=== PATIENT | female | born 1950 | race Caucasian/White ===

== ENCOUNTER → 2017-01-26 | Outpatient (CLI) | payer MEDICARE ==
--- NOTE | 2017-01-26 09:41 | MR ---
EXAMINATION TYPE: MR shoulder RT wo con DATE OF EXAM: 01/26/2017 COMPARISON: NONE HISTORY: Rt Shoulder pain TECHNIQUE: Multiplanar, multisequence imaging of the shoulder is performed without contrast. FINDINGS: There is elevation of the humerus relative to the glenoid with cystic changes involving the glenoid a nd narrowing of the joint space with evidence of chondromalacia. Findings compatible with arthritic c hange. There is diffuse abnormal intrinsic signal involving the distal margins of the infraspinatus and supr aspinatus tendons compatible with partial tears with no evidence of significant retraction. Partial t hrough thickness tear is seen involving the anterior fibers of the supraspinatus tendon at the level of the insertion. There is a fluid-filled signal along the inner margin of the deltoid which may represent a small gang lion cyst measuring approximately 2.2 cm. Abnormal signal is seen within the anterior superior labrum compatible with labral tear. Biceps tendon is well situated the bicipital groove. Increased signal within the intracapsular portio n of the tendon suggestive of tendinosis. Suprascapular Notch has a normal appearance. Hypertrophic change of the AC joint results in impingement of the supraspinatus tendon and muscle. There is mild atrophic change of the supraspinatus and infraspinatus muscles. Subscapularis appears intact there is intermediate signal at its insertion compatible with tendinosis .. IMPRESSION: 1. There is diffuse abnormal signal throughout the distal margins of the supraspinatus and infraspina tus tendons extending a length of 2.2 cm compatible with partial tears. Partial through thickness tea r involving the anterior fibers of the supraspinatus at the insertion without evidence of significant retraction. Mild atrophic changes of the supraspinatus and infraspinatus muscles. 2. Arthritic changes with anterior superior labral tear. 3. Fluid-filled structure along the anterior margin of the deltoid may represent continuation or extr avasation of joint fluid. Ganglion cyst in the differential. 4. Impingement secondary to hypertrophic change of the AC joint. 5. Increased signal along the intracapsular portion of the biceps tendon compatible with tendinosis. No retraction or tear.
== END | disposition home or self-care (01) ==
LOC: RADMRIMAIN 06:36
PROVIDERS: ATTEND Orthopaedic Surgery
DX: M75.111 Incomplete rotator cuff tear or rupture of right shoulder, not specified as traumatic (principal); S43.491A Other sprain of right shoulder joint, initial encounter; M25.811 Other specified joint disorders, right shoulder; R93.7 Abnormal findings on diagnostic imaging of other parts of musculoskeletal system

== ENCOUNTER 2017-03-17 06:45 | Day surgery (SDC) | payer MEDICARE ==
[2017-03-15 10:57] VITALS: BMI 31.3
[~2017-03-17 06:45] MED LIST: LACTATED RINGERS 1,000 ML IV SCH
[2017-03-17] MEDS ORDERED: LACTATED RINGERS 1,000 ML IV ONE (07:03)
[2017-03-17 07:15] VITALS: TEMP 97
[2017-03-17 07:17] LABS: Glucose,Whole Blood 116 mg/dL (75-99)
[2017-03-17] MEDS ORDERED: PROPOFOL 10 MG/ML 20 ML VIAL IV ONE (07:45)
[2017-03-17] MEDS ORDERED: LIDOCAINE 1% INJ 10MG/ML (20 ML MDV) ONE (07:45)
--- NOTE | 2017-03-17 07:56 | P.GSHP ---
History of Present Illness H&P Date: 03/17/17 Chief Complaint: Diarrhea, screening colonoscopy This is a 66-year-old female referred from Dr. Sophy Simmons. Patient had complaints of diarrhea for last 2 months. She is a history of diverticulosis. She does today for screening colonoscopy. Past Medical History Past Medical History: COPD, Diabetes Mellitus, Fibromyalgia, Hyperlipidemia, Hypertension, Osteoarthritis (OA), Thyroid Disorder Additional Past Medical History / Comment(s): MIGRAINE HEADACHES, RAPID HEARTBEAT, hiatal hernia, diarrhea for past 1 1/2 months History of Any Multi-Drug Resistant Organisms: MRSA Date of last positivie culture/infection: 2005 MDRO Source:: RIGHT MIDDLE FINGER Past Surgical History: Appendectomy, Back Surgery, Heart Catheterization, Hernia Repair, Joint Replacement, Orthopedic Surgery Additional Past Surgical History / Comment(s): EXPLORATORY LAPAROTOMY , walker THUMB joint replacement, left knee replacement, rt shoulder rotator cuff, rt hand middle finger surgery Past Anesthesia/Blood Transfusion Reactions: Motion Sickness Smoking Status: Former smoker - Past Family History Brother(s) Family Medical History: Cancer Additional Family Medical History / Comment(s): LEUKEMIA Father Family Medical History: Cancer Additional Family Medical History / Comment(s): SKIN CANCER Medications and Allergies Home Medications Medication Instructions Recorded Confirmed Type Albuterol Sulfate [Proair Hfa] 2 puff INHALATION Q6HR PRN 12/10/14 03/17/17 History Isosorbide Mononitrate ER [Imdur] 30 mg PO DAILY 12/10/14 03/17/17 History Levothyroxine Sodium [Synthroid] 50 mcg PO DAILY 12/10/14 03/17/17 History Montelukast [Singulair] 10 mg PO HS 12/10/14 03/17/17 History Nortriptyline [Pamelor] 50 mg PO HS 12/10/14 03/15/17 History Sertraline [Zoloft] 100 mg PO DAILY 12/10/14 03/17/17 History Fluticasone/Salmeterol [Advair Hfa 1 puff INHALATION BID 05/02/15 03/17/17 History 230-21 Mcg Inhaler] metFORMIN HCL [Glucophage] 500 mg PO BID 05/02/15 03/17/17 History Atorvastatin [Lipitor] 40 mg PO HS 03/15/17 03/17/17 History Lisinopril [Zestril] 5 mg PO DAILY 03/15/17 03/17/17 History Melatonin 10 mg PO HS PRN 03/15/17 03/17/17 History Meloxicam [Mobic] 15 mg PO DAILY 03/15/17 03/17/17 History Verapamil HCl [Verapamil ER] 120 mg PO HS 03/15/17 03/17/17 History Allergies Allergy/AdvReac Type Severity Reaction Status Date / Time adhesive Allergy Rash/Hives Verified 09/16/15 12:20 Sulfa (Sulfonamide Allergy SWELLING Verified 09/16/15 12:20 Antibiotics) OF THROAT,SHORTNESS OF BREATH simvastatin [From Zocor] AdvReac Unknown Verified 09/16/15 12:20 metal Allergy Rash/Hives Uncoded 03/15/17 10:39 Surgical - Exam Vital Signs Temp Pulse Resp BP Pulse Ox 97 F L 96 16 117/74 94 L 03/17/17 07:13 03/17/17 07:13 03/17/17 07:13 03/17/17 07:13 03/17/17 07:13 - General well developed, no distress - Eyes PERRL - ENT normal pinna - Neck no masses - Respiratory normal expansion - Cardiovascular Rhythm: regular - Abdomen Abdomen: soft, non tender Results - Labs Abnormal Lab Results - Last 24 Hours (Table) 03/17/17 Range/Units 07:13 POC Glucose (mg/dL) 116 H (75-99) mg/dL Assessment and Plan Plan: Diarrhea History of diverticulosis We'll perform screening colonoscopy
--- NOTE | 2017-03-17 08:09 | P.OP ---
Date of Procedure: 03/17/17 Preoperative Diagnosis: Screening colonoscopy Diarrhea Postoperative Diagnosis: Severe diverticulosis of sigmoid colon Random rectal biopsy pathology pending Procedure(s) Performed: Colonoscopy Implants: Anesthesia: MAC Surgeon: Tyrone Schneider Pathology: other (Rectum) Condition: stable Disposition: PACU Indications for Procedure: Operative Findings: Description of Procedure: The patient's placed on the endoscopy table in the lateral position. She received IV sedation. Digital rectal exam was performed which revealed no abnormalities. The flexible colonoscope was then placed patient anus passed throughout the entire colon. The ileocecal valve was visualized. The cecum, ascending and transverse colon appeared normal. In the descending and sigmoid colon there was significant diverticular changes. The scope was then brought back into the rectum and this appeared normal. Due to the patient's symptoms of diarrhea a random rectal biopsies performed. There is known to any inflammation the rectum. The scope was withdrawn for patient.
[2017-03-17 08:23] LABS: Glucose,Whole Blood 120 mg/dL (75-99)
[2017-03-17 08:35] VITALS: BP 118/74; PULSE 88; RESP 18
== END 2017-03-17 08:45 | disposition home or self-care (01) ==
LOC: ORWHC2ENDO 06:45
PROVIDERS: ATTEND Surgery
DX: K57.30 Diverticulosis of large intestine without perforation or abscess without bleeding (principal); R19.7 Diarrhea, unspecified; J44.9 Chronic obstructive pulmonary disease, unspecified; E11.9 Type 2 diabetes mellitus without complications; M79.7 Fibromyalgia; E78.5 Hyperlipidemia, unspecified; I10 Essential (primary) hypertension; M19.90 Unspecified osteoarthritis, unspecified site; E07.9 Disorder of thyroid, unspecified; G43.909 Migraine, unspecified, not intractable, without status migrainosus; Z79.51 Long term (current) use of inhaled steroids; Z79.84 Long term (current) use of oral hypoglycemic drugs; Z79.899 Other long term (current) drug therapy; Z88.2 Allergy status to sulfonamides; Z91.048 Other nonmedicinal substance allergy status; Z86.14 Personal history of Methicillin resistant Staphylococcus aureus infection; Z87.891 Personal history of nicotine dependence
CPT/HCPCS: 88305; 45380; J2001; J2704

== ENCOUNTER 2017-03-30 05:51 | Day surgery (SDC) | payer MEDICARE ==
[2017-03-22 11:58] VITALS: BMI 31.3
[~2017-03-30 05:51] MED LIST changes: +DEXAMETHASONE SOD PHOSPHATE 10 MG/ML 1 ML VIAL IV ONE; +HYDROmorphone 1 MG/ML 1 ML SYRINGE IVP PRN; +MIDAZOLAM 2 MG/2 ML VIAL IV PRN; +ceFAZolin 2 GM in SODIUM CHLORIDE 0.9% 100 ML IVPB ONE
[2017-03-30] MEDS ORDERED: LIDOCAINE 1% 20 ML VIAL (10MG/ML) FOR IV START INTRADERMA ONE (06:36)
[2017-03-30] MEDS: ONDANSETRON 4 MG/2 ML VIAL IVP ONE ×2 (06:37→09:22)
[2017-03-30 06:46] LABS: Glucose,Whole Blood 135 mg/dL (75-99)
--- NOTE | 2017-03-30 07:18 | P.HPOR ---
History of Present Illness H&P Date: 03/30/17 Chief Complaint: Right shoulder pain 66-year-old patient seen with progressive right shoulder pain. After having treatment options discussed, she elected to proceed with right shoulder arthroscopy. Past Medical History Past Medical History: COPD, Diabetes Mellitus, Fibromyalgia, Hyperlipidemia, Hypertension, Osteoarthritis (OA), Thyroid Disorder Additional Past Medical History / Comment(s): MIGRAINE HEADACHES, RAPID HEARTBEAT, HIATAL HERNIA, DIARRHEA., TORN TIGHT ROTATOR CUFF. History of Any Multi-Drug Resistant Organisms: MRSA Date of last positivie culture/infection: 2005 MDRO Source:: RIGHT MIDDLE FINGER Past Surgical History: Appendectomy, Back Surgery, Heart Catheterization, Hernia Repair, Joint Replacement, Orthopedic Surgery Additional Past Surgical History / Comment(s): EXPLORATORY LAPAROTOMY, TC THUMB JOINT REPLACEMENT, LEFT KNEE REPLACEMENT, RIGHT SHOULDER ROTATOR CUFF, RIGHT HAND MIDDLE FINGER SURGERY. Past Anesthesia/Blood Transfusion Reactions: No Reported Reaction, Motion Sickness Past Psychological History: Anxiety Smoking Status: Former smoker Past Alcohol Use History: None Reported Additional Past Alcohol Use History / Comment(s): STARTED SMOKING AGE 15 ,QUIT IN 2008 Past Drug Use History: None Reported - Past Family History Brother(s) Family Medical History: Cancer Additional Family Medical History / Comment(s): LEUKEMIA Father Family Medical History: Cancer Additional Family Medical History / Comment(s): SKIN CANCER Medications and Allergies Home Medications Medication Instructions Recorded Confirmed Type Albuterol Sulfate [Proair Hfa] 2 puff INHALATION Q6HR PRN 12/10/14 03/22/17 History Isosorbide Mononitrate ER [Imdur] 30 mg PO DAILY 12/10/14 03/22/17 History Levothyroxine Sodium [Synthroid] 50 mcg PO DAILY 12/10/14 03/22/17 History Montelukast [Singulair] 10 mg PO HS 12/10/14 03/22/17 History Nortriptyline [Pamelor] 50 mg PO HS 12/10/14 03/22/17 History Sertraline [Zoloft] 100 mg PO DAILY 12/10/14 03/22/17 History Fluticasone/Salmeterol [Advair Hfa 1 puff INHALATION BID 05/02/15 03/22/17 History 230-21 Mcg Inhaler] metFORMIN HCL [Glucophage] 500 mg PO BID 05/02/15 03/22/17 History Atorvastatin [Lipitor] 40 mg PO HS 03/15/17 03/22/17 History Lisinopril [Zestril] 5 mg PO DAILY 03/15/17 03/22/17 History Melatonin 10 mg PO HS PRN 03/15/17 03/22/17 History Meloxicam [Mobic] 15 mg PO DAILY 03/15/17 03/22/17 History Verapamil HCl [Verapamil ER] 120 mg PO HS 03/15/17 03/22/17 History L.acidoph,Paracasei, B.lactis 1 each PO DAILY 03/22/17 03/22/17 History [Probiotic] Loperamide HCl [Imodium A-D] 2 mg PO DAILY PRN 03/22/17 03/22/17 History Allergies Allergy/AdvReac Type Severity Reaction Status Date / Time adhesive Allergy Rash/Hives Verified 03/22/17 11:45 Sulfa (Sulfonamide Allergy SWELLING Verified 03/22/17 11:45 Antibiotics) OF THROAT,SHORTNESS OF BREATH simvastatin [From Zocor] AdvReac Unknown Verified 03/22/17 11:45 metal Allergy Rash/Hives Uncoded 03/22/17 11:45 Physical Examination Osteopathic Statement: *. No significant issues noted on an osteopathic structural exam other than those noted in the History and Physical/Consult. Right shoulder: Flexion 150, abduction 30, external rotation is 50 with pain and weakness, tenderness along the anterior lateral acromion and rotator cuff insertion site, impingement sign positive at 70, distal neurovascular exam intact Results X-ray right shoulder: Type II anterior acromion, acromioclavicular joint osteoarthritis, cystic changes of the greater tuberosity MRI right shoulder: Rotator cuff tear, impingement - Labs Labs: Abnormal Lab Results - Last 24 Hours (Table) 03/30/17 Range/Units 06:30 POC Glucose (mg/dL) 135 H (75-99) mg/dL Assessment and Plan Plan: Assessment: Right shoulder impingement with rotator cuff tear and acromioclavicular joint osteoarthritis Plan: Arthroscopy right shoulder with subacromial decompression and probable arthroscopic rotator cuff repair possible Rogers procedure and debridement Time with Patient: Less than 30
[2017-03-30] MEDS ORDERED: SUCCINYLCHOLINE CHLORIDE 100 MG/5 ML SYR IV ONE (07:30)
[2017-03-30] MEDS ORDERED: LIDOCAINE 1% INJ 10MG/ML (20 ML MDV) ONE (07:30)
[2017-03-30] MEDS ORDERED: MIDAZOLAM 2 MG/2 ML VIAL ONE (07:30)
[2017-03-30] MEDS ORDERED: PROPOFOL 10 MG/ML 20 ML VIAL IV ONE (07:30)
[2017-03-30] MEDS ORDERED: LIDOCAINE 2%-EPI 1:100,000 20 ML VIAL ONE (07:30)
[2017-03-30] MEDS ORDERED: fentaNYL (PF) 50 MCG/ML 2 ML AMP ONE (07:30)
[2017-03-30] MEDS ORDERED: ROPIVACAINE 5 MG/ML 30 ML VIAL ONE (07:30)
[2017-03-30] MEDS ORDERED: LACTATED RINGERS 1,000 ML IV ONE (08:41)
[2017-03-30 09:14] VITALS: TEMP 97.6
[2017-03-30 09:18] LABS: Glucose,Whole Blood 174 mg/dL (75-99)
--- NOTE | 2017-03-30 09:19 | P.OP ---
Date of Procedure: 03/30/17 Preoperative Diagnosis: Right shoulder impingement with rotator cuff tear Postoperative Diagnosis: 1. Right shoulder rotator cuff tear 2. Right shoulder impingement 3. Right shoulder glenohumeral joint osteoarthritis with osteochondral tear glenoid fossa 4. Right shoulder acromioclavicular joint osteoarthritis 5. Right shoulder partial biceps tendon tear 6. Right shoulder superficial labral tear Procedure(s) Performed: 1. Right shoulder arthroscopic rotator cuff repair 2. Right shoulder arthroscopic subacromial decompression 3. Right shoulder arthroscopic chondroplasty glenoid 4. Right shoulder arthroscopic Elio procedure 5. Right shoulder arthroscopic biceps tenotomy 6. Right shoulder arthroscopic debridement labral tear Implants: 4-valeris peek anchors Anesthesia: GETA, regional (Shoulder block) Surgeon: Matthew Garcia Swager Operator #1: Chuy Khan Estimated Blood Loss (ml): 10 Pathology: none sent Condition: stable Disposition: PACU Indications for Procedure: 66-year-old patient seen with progressive right shoulder pain. After treatment options were discussed, she elected to proceed with arthroscopy. Operative Findings: see description of procedure Description of Procedure: Patient underwent a shoulder block by department of anesthesia. The patient was then taken to the operative suite. The patient underwent a general anesthetic by the department of anesthesia. The patient was placed into a lateral position and secured. There was appropriate padding of the bony prominence. Right shoulder was then prepped and draped in normal sterile orthopedic fashion. We placed the extremity in 10 pounds of longitudinal traction. A posterior incision was now made for a posterior working portal site. The trocar and cannula were inserted into the glenohumeral joint. Arthroscopy was initiated. Spinal needle was now inserted anteriorly, to ascertain the anterior working portal site. An incision was now made in that area, a trocar was inserted followed by a probe. There was obvious glenohumeral joint osteoarthritis. Grade 3 chondromalacia changes of the humeral head. Grade 3/4 chondromalacia changes of the glenoid. There was one area of exposed bone some osteochondral tears present on the glenoid side. There was some superficial tearing of the anterior superior labrum present. There was partial tearing long head biceps tendon. There was no obvious rotator cuff tear present. No loose bodies were identified. I performed an arthroscopic biceps tenotomy. I debrided the labral tears down to stable tissue. I performed a chondroplasty of the glenoid getting down to stable osteochondral tissue. The residual labrum was probed and found to be stable. The residual osteochondral surfaces were stable but again we noticed significant chondromalacia. At this point instruments were removed from glenohumeral joint. Utilizing the posterior working portal site, the trocar and cannula were inserted into the subacromial space. Arthroscopy initiated. I made an incision 2 fingerbreadths lateral to the acromion. I introduced my trocar followed by my [employer] ablator. I now began ablating thick subacromial bursal tissue, which exposed the undersurface of the anterior acromion. This was diminished subacromial space. There was a very prominent anterior acromion. A motorized bur was introduced and a subacromial decompression was performed. I also excised some osteophytes off the inferior aspect of the distal clavicle. The AC joint was visualized and noted to be fairly arthritic. Our motorized bur was introduced in the anterior portal site and a Elio procedure was performed without difficulty, decompressing the AC joint nicely. I turned my attention to the rotator cuff. There was about a 2.5-3 cm tear distal supraspinatus. I debrided the margins getting down to stable tissue. I abraded the footprint with a motorized bur. I made an research neuropsychologist portal site off the lateral acromion. I introduced 2 medial anchors with 2 sutures each. I now passed all 4 limbs of suture through good bites of rotator cuff tendon. There was a small area posteriorly which I thought needed augmented fixation and I therefore passed one loop suture. I now crisscrossed the sutures in introduced 2 lateral anchors compressing the tendon along the footprint very nicely. All residual suture limbs were clipped. We had good stable repair. I injected 1 mL Allogen intra-articular. Instruments now removed from the portal sites. All portal sites were approximated with nylon suture. Sterile dressings were applied followed by a shoulder immobilizer. Trever ASHER assisted with the procedure. The patient was awakened, transferred to a bed, and taken to recovery in stable condition.
[2017-03-30] MEDS ORDERED: diphenhydrAMINE 50 MG/ML 1 ML VIAL IVP ONE (09:52)
[2017-03-30 10:16] VITALS: RESP 18
[2017-03-30 11:02] VITALS: BP 129/65; PULSE 88
== END 2017-03-30 11:58 | disposition home or self-care (01) ==
LOC: OR 05:51
PROVIDERS: ATTEND Orthopaedic Surgery
DX: M75.101 Unspecified rotator cuff tear or rupture of right shoulder, not specified as traumatic (principal); M75.41 Impingement syndrome of right shoulder; M19.011 Primary osteoarthritis, right shoulder; S43.401A Unspecified sprain of right shoulder joint, initial encounter; S46.111A Strain of muscle, fascia and tendon of long head of biceps, right arm, initial encounter; X58.XXXA Exposure to other specified factors, initial encounter; J44.9 Chronic obstructive pulmonary disease, unspecified; E11.9 Type 2 diabetes mellitus without complications; Z79.84 Long term (current) use of oral hypoglycemic drugs; M79.7 Fibromyalgia; E78.5 Hyperlipidemia, unspecified; E07.9 Disorder of thyroid, unspecified; I10 Essential (primary) hypertension; Z87.891 Personal history of nicotine dependence; Z79.1 Long term (current) use of non-steroidal anti-inflammatories (NSAID); Z79.51 Long term (current) use of inhaled steroids; Z79.899 Other long term (current) drug therapy; Z88.2 Allergy status to sulfonamides; Z88.8 Allergy status to other drugs, medicaments and biological substances; Z91.09 Other allergy status, other than to drugs and biological substances
CPT/HCPCS: 64415; 29826; 29827; 29824; C1713 ×2; C1765; J2250; J1200; J1100; J0690; J2405; J2001; J3010; J2795; J0330; J2704

== ENCOUNTER → 2017-09-09 | Outpatient (CLI) | payer MEDICARE ==
--- NOTE | 2017-09-12 11:21 | MM ---
Reason for exam: screening (asymptomatic). Last mammogram was performed 11 years and 10 months ago. History: Patient is postmenopausal. Family history of breast cancer in aunt. Physical Findings: A clinical breast exam by your physician is recommended on an annual basis and results should be correlated with mammographic findings. MG 3D Screening Mammo W/Cad Bilateral CC and MLO view(s) were taken. Prior study comparison: October 29, 2005, CAD bilateral diagnostic mammogram. May 14, 2004, left breast special view mammogram. The breast tissue is heterogeneously dense. This may lower the sensitivity of mammography. Benign calcifications bilaterally. There is chronic nodularity bilaterally. There is no dominant lesion. No significant changes when compared with prior studies. ASSESSMENT: Benign, BI-RAD 2 RECOMMENDATION: Routine screening mammogram of both breasts in 1 year.
== END | disposition home or self-care (01) ==
LOC: RADMAMWWP 08:12
PROVIDERS: ATTEND Family Medicine
DX: Z12.31 Encounter for screening mammogram for malignant neoplasm of breast (principal)
CPT/HCPCS: 77063; 77067

== ENCOUNTER 2018-12-15 16:07 | Observation (INO) | payer MEDICARE ==
[2018-12-15] MEDS ORDERED: SODIUM CHLORIDE 0.9% 500 ML 500 ML IV ONE (16:35)
[2018-12-15 16:45] LABS: Glucose,Whole Blood 96 mg/dL (75-99)
[2018-12-15 17:03] LABS: Appearance,Urine Clear (Clear); Bilirubin,Urine Negative (Negative); Blood,Urine Negative (Negative); Color,Urine Light Yellow; Glucose,Urine (UA) Negative (Negative); Ketones,Urine Negative (Negative); Leukocyte Esterase,Urine Trace (Negative); Mucus,Urine Rare /hpf; Nitrite,Urine Negative (Negative); Protein,Urine Negative (Negative); RBC,Urine <1 /hpf (0-5); Specific Gravity,Urine 1.009 (1.001-1.035); Urobilinogen,Urine <2.0 mg/dL (<2.0); WBC,Urine 5 /hpf (0-5)
[2018-12-15 17:13] LABS: Basophils # (A) 0.1 k/uL (0-0.2); Basophils % (A) 1 %; Eosinophils # (A) 0.2 k/uL (0-0.7); Eosinophils % (A) 2 %; HCT 37.6 % (34.0-46.0); HGB 12.4 gm/dL (11.4-16.0); Lymphocytes # (A) 1.6 k/uL (1.0-4.8); Lymphocytes % (A) 21 %; MCH 28.5 pg (25.0-35.0); MCV 86.4 fL (80.0-100.0); Mean Platelet Volume 6.2; Monocytes # (A) 0.4 k/uL (0-1.0); Monocytes % (A) 5 %; Neutrophils # (A) 5.4 k/uL (1.3-7.7); Neutrophils % (A) 68 %; Platelet Count 349 k/uL (150-450); RBC 4.35 m/uL (3.80-5.40); RDW 13.6 % (11.5-15.5); WBC 7.9 k/uL (3.8-10.6)
--- NOTE | 2018-12-15 17:18 | ED ---
Altered Mental Status HPI - General Chief Complaint: Altered Mental Status Stated Complaint: altered mental status Time Seen by Provider: 12/15/18 16:35 Source: family, RN notes reviewed, old records reviewed Mode of arrival: wheelchair Limitations: no limitations - History of Present Illness Initial Comments: This is a 68-year-old female the ER for evaluation. Patient presented for evaluation of neurological insult. This patient was last seen normal around 1:00. Around 4:00 and just prior to arrival family noted patient to be searching for things and she was unsure what she was surgeon for it difficulty with recent memory recall was unsure was present when her went with her daughter to doctor's. Patient has no prior history of CVA. Denies any strength or weakness deficits. No headaches. Patient denies any recent medicat ion changes. Patient's memory is improving currently she has no her she is, she still having difficulty remembering what she was looking for in her house. MD Complaint: altered mental status, confusion -: hour(s) Severity: mild Consistency of Symptoms: unknown (Proving) - Related Data Home Medications Medication Instructions Recorded Confirmed Albuterol Sulfate [Proair Hfa] 2 puff INHALATION RT-QID PRN 12/10/14 12/15/18 Levothyroxine Sodium [Synthroid] 50 mcg PO DAILY 12/10/14 12/15/18 Montelukast [Singulair] 10 mg PO HS 12/10/14 12/15/18 Nortriptyline [Pamelor] 50 mg PO HS 12/10/14 12/15/18 Sertraline [Zoloft] 100 mg PO DAILY 12/10/14 12/15/18 metFORMIN HCL [Glucophage] 500 mg PO BID 05/02/15 12/15/18 Atorvastatin [Lipitor] 40 mg PO HS 03/15/17 12/15/18 Lisinopril [Zestril] 10 mg PO DAILY 03/15/17 12/15/18 Melatonin 10 mg PO HS 03/15/17 12/15/18 L.acidoph,Paracasei, B.lactis 1 cap PO DAILY 03/22/17 12/15/18 [Probiotic] Pantoprazole Sodium [Protonix] 40 mg PO DAILY 04/09/18 12/15/18 Albuterol Nebulized [Ventolin 2.5 mg INHALATION RT-QID PRN 12/15/18 12/15/18 Nebulized] Metoprolol Tartrate [Lopressor] 25 mg PO BID 12/15/18 12/15/18 Previous Rx's Medication Instructions Recorded Acetaminophen Tab [Tylenol] 650 mg PO Q4HR PRN tab 04/15/18 Allergies Allergy/AdvReac Type Severity Reaction Status Date / Time adhesive Allergy Rash/Hives Verified 12/15/18 17:53 simvastatin [From Zocor] Allergy Anaphylaxis Verified 12/15/18 17:53 Sulfa (Sulfonamide Allergy SWELLING Verified 12/15/18 17:53 Antibiotics) OF THROAT,SHORTNESS OF BREATH metal Allergy Rash/Hives Uncoded 04/09/18 15:50 Review of Systems ROS Statement: Those systems with pertinent positive or pertinent negative responses have been documented in the HPI. ROS Other: All systems not noted in ROS Statement are negative. Past Medical History Past Medical History: COPD, Diabetes Mellitus, Hypertension, Osteoarthritis (OA), Thyroid Disorder Additional Past Medical History / Comment(s): MIGRAINE HEADACHES, PAST HX RAPID HEARTBEAT, diverticulitis History of Any Multi-Drug Resistant Organisms: MRSA Date of last positivie culture/infection: 08/27/05 MDRO Source:: RIGHT MIDDLE FINGER Past Surgical History: Heart Catheterization, Hernia Repair, Orthopedic Surgery Additional Past Surgical History / Comment(s): UMBILICAL HERNIA ,INGUINAL HERNIA, EXPLORATORY LAPAROTOMY,THUMB SURGERY, 12-16-14 TOTAL LT KNEE ARTHROPLASTY. R Shoulder - rotator cuff. Past Anesthesia/Blood Transfusion Reactions: Previous Problems w/ Anesthesia Additional Past Anesthesia/Blood Transfusion Reaction / Comment(s): anesthetics - generalized weakness and muscle soreness. Past Psychological History: Anxiety Smoking Status: Former smoker Past Alcohol Use History: Rare Past Drug Use History: None Reported - Past Family History Mother Family Medical History: Myocardial Infarction ([place]) Additional Family Medical History / Comment(s): Mother of [place] Brother(s) Family Medical History: Cancer Additional Family Medical History / Comment(s): LEUKEMIA Father Family Medical History: Cancer, Myocardial Infarction ([place]) Additional Family Medical History / Comment(s): SKIN CANCER, father of [place] General Exam - General Exam Comments Initial Comments: NIH of 0 Limitations: no limitations General appearance: alert, in no apparent distress Course Vital Signs 05/10/19 05/10/19 05/10/19 16:19 17:00 17:30 Temperature 97.6 F Pulse Rate 80 84 77 Respiratory 16 16 16 Rate Blood Pressure 128/78 129/79 129/79 O2 Sat by Pulse 96 97 96 Oximetry 12/15/18 18:00 Temperature Pulse Rate 89 Respiratory 18 Rate Blood Pressure 137/72 O2 Sat by Pulse 98 Oximetry - Reevaluation(s) Reevaluation #1: 12/15/18 18:57 Medical record is reviewed Reevaluation #2: 12/15/18 18:57 Patient's symptoms continuing to improve Medical Decision Making - Medical Decision Making 68 female the ER with symptoms of TIA versus CVA, retrograde amnesia, will admit for neurology evaluation and placed on aspirin, continue neurology checks - Lab Data Result diagrams: 12/15/18 17:00 12/15/18 17:00 Lab Results 12/15/18 12/15/18 12/15/18 Range/Units 16:44 16:52 16:52 WBC (3.8-10.6) k/uL RBC (3.80-5.40) m/uL Hgb (11.4-16.0) gm/dL Hct (34.0-46.0) % MCV (80.0-100.0) fL MCH (25.0-35.0) pg MCHC (31.0-37.0) g/dL RDW (11.5-15.5) % Plt Count (150-450) k/uL Neutrophils % % Lymphocytes % % Monocytes % % Eosinophils % % Basophils % % Neutrophils # (1.3-7.7) k/uL Lymphocytes # (1.0-4.8) k/uL Monocytes # (0-1.0) k/uL Eosinophils # (0-0.7) k/uL Basophils # (0-0.2) k/uL PT (9.0-12.0) sec INR (<1.2) APTT (22.0-30.0) sec Sodium (137-145) mmol/L Potassium (3.5-5.1) mmol/L Chloride (98-107) mmol/L Carbon Dioxide (22-30) mmol/L Anion Gap mmol/L BUN (7-17) mg/dL Creatinine (0.52-1.04) mg/dL Est GFR (CKD-EPI)AfAm (>60 ml/min/1.73 sqM) Est GFR (CKD-EPI)NonAf (>60 ml/min/1.73 sqM) Glucose (74-99) mg/dL POC Glucose (mg/dL) 96 (75-99) mg/dL POC Glu Software Applications Specialist ID Harriet Paulino Calcium (8.4-10.2) mg/dL Magnesium (1.6-2.3) mg/dL Total Bilirubin (0.2-1.3) mg/dL AST (14-36) U/L ALT (9-52) U/L Alkaline Phosphatase (38-126) U/L Ammonia (<30) umol/L Troponin I (0.000-0.034) ng/mL Total Protein (6.3-8.2) g/dL Albumin (3.5-5.0) g/dL Urine Color Light Yellow Urine Appearance Clear (Clear) Urine pH 5.0 (5.0-8.0) Ur Specific [place] 1.009 (1.001-1.035) Urine Protein Negative (Negative) Urine Glucose (UA) Negative (Negative) Urine Ketones Negative (Negative) Urine Blood Negative (Negative) Urine Nitrite Negative (Negative) Urine Bilirubin Negative (Negative) Urine Urobilinogen <2.0 (<2.0) mg/dL Ur Leukocyte Esterase Trace H (Negative) Urine RBC <1 (0-5) /hpf Urine WBC 5 (0-5) /hpf Urine Mucus Rare H (None) /hpf Urine Opiates Screen Not Detected (NotDetected) Ur Oxycodone Screen Not Detected (NotDetected) Urine Methadone Screen Not Detected (NotDetected) Ur Propoxyphene Screen Not Detected (NotDetected) Ur Barbiturates Screen Not Detected (NotDetected) U Tricyclic Antidepress Detected H (NotDetected) Ur Phencyclidine Scrn Not Detected (NotDetected) Ur Amphetamines Screen Not Detected (NotDetected) U Methamphetamines Scrn Not Detected (NotDetected) U Benzodiazepines Scrn Not Detected (NotDetected) Urine Cocaine Screen Not Detected (NotDetected) U Marijuana (THC) Screen Not Detected (NotDetected) 12/15/18 12/15/18 12/15/18 Range/Units 17:00 17:00 17:00 WBC 7.9 (3.8-10.6) k/uL RBC 4.35 (3.80-5.40) m/uL Hgb 12.4 (11.4-16.0) gm/dL Hct 37.6 (34.0-46.0) % MCV 86.4 (80.0-100.0) fL MCH 28.5 (25.0-35.0) pg MCHC 33.0 (31.0-37.0) g/dL RDW 13.6 (11.5-15.5) % Plt Count 349 (150-450) k/uL Neutrophils % 68 % Lymphocytes % 21 % Monocytes % 5 % Eosinophils % 2 % Basophils % 1 % Neutrophils # 5.4 (1.3-7.7) k/uL Lymphocytes # 1.6 (1.0-4.8) k/uL Monocytes # 0.4 (0-1.0) k/uL Eosinophils # 0.2 (0-0.7) k/uL Basophils # 0.1 (0-0.2) k/uL PT (9.0-12.0) sec INR (<1.2) APTT (22.0-30.0) sec Sodium 138 (137-145) mmol/L Potassium 4.4 (3.5-5.1) mmol/L Chloride 106 (98-107) mmol/L Carbon Dioxide 24 (22-30) mmol/L Anion Gap 8 mmol/L BUN 18 H (7-17) mg/dL Creatinine 0.83 (0.52-1.04) mg/dL Est GFR (CKD-EPI)AfAm 84 (>60 ml/min/1.73 sqM) Est GFR (CKD-EPI)NonAf 73 (>60 ml/min/1.73 sqM) Glucose 100 H (74-99) mg/dL POC Glucose (mg/dL) (75-99) mg/dL POC Glu Software Applications Specialist ID Calcium 9.6 (8.4-10.2) mg/dL Magnesium 1.5 L (1.6-2.3) mg/dL Total Bilirubin 0.5 (0.2-1.3) mg/dL AST 24 (14-36) U/L ALT 24 (9-52) U/L Alkaline Phosphatase 146 H (38-126) U/L Ammonia <9 (<30) umol/L Troponin I (0.000-0.034) ng/mL Total Protein 6.9 (6.3-8.2) g/dL Albumin 4.2 (3.5-5.0) g/dL Urine Color Urine Appearance (Clear) Urine pH (5.0-8.0) Ur Specific [place] (1.001-1.035) Urine Protein (Negative) Urine Glucose (UA) (Negative) Urine Ketones (Negative) Urine Blood (Negative) Urine Nitrite (Negative) Urine Bilirubin (Negative) Urine Urobilinogen (<2.0) mg/dL Ur Leukocyte Esterase (Negative) Urine RBC (0-5) /hpf Urine WBC (0-5) /hpf Urine Mucus (None) /hpf Urine Opiates Screen (NotDetected) Ur Oxycodone Screen (NotDetected) Urine Methadone Screen (NotDetected) Ur Propoxyphene Screen (NotDetected) Ur Barbiturates Screen (NotDetected) U Tricyclic Antidepress (NotDetected) Ur Phencyclidine Scrn (NotDetected) Ur Amphetamines Screen (NotDetected) U Methamphetamines Scrn (NotDetected) U Benzodiazepines Scrn (NotDetected) Urine Cocaine Screen (NotDetected) U Marijuana (THC) Screen (NotDetected) 12/15/18 12/15/18 Range/Units 17:00 17:00 WBC (3.8-10.6) k/uL RBC (3.80-5.40) m/uL Hgb (11.4-16.0) gm/dL Hct (34.0-46.0) % MCV (80.0-100.0) fL MCH (25.0-35.0) pg MCHC (31.0-37.0) g/dL RDW (11.5-15.5) % Plt Count (150-450) k/uL Neutrophils % % Lymphocytes % % Monocytes % % Eosinophils % % Basophils % % Neutrophils # (1.3-7.7) k/uL Lymphocytes # (1.0-4.8) k/uL Monocytes # (0-1.0) k/uL Eosinophils # (0-0.7) k/uL Basophils # (0-0.2) k/uL PT 9.5 (9.0-12.0) sec INR 0.9 (<1.2) APTT 21.0 L (22.0-30.0) sec Sodium (137-145) mmol/L Potassium (3.5-5.1) mmol/L Chloride (98-107) mmol/L Carbon Dioxide (22-30) mmol/L Anion Gap mmol/L BUN (7-17) mg/dL Creatinine (0.52-1.04) mg/dL Est GFR (CKD-EPI)AfAm (>60 ml/min/1.73 sqM) Est GFR (CKD-EPI)NonAf (>60 ml/min/1.73 sqM) Glucose (74-99) mg/dL POC Glucose (mg/dL) (75-99) mg/dL POC Glu Software Applications Specialist ID Calcium (8.4-10.2) mg/dL Magnesium (1.6-2.3) mg/dL Total Bilirubin (0.2-1.3) mg/dL AST (14-36) U/L ALT (9-52) U/L Alkaline Phosphatase (38-126) U/L Ammonia (<30) umol/L Troponin I <0.012 (0.000-0.034) ng/mL Total Protein (6.3-8.2) g/dL Albumin (3.5-5.0) g/dL Urine Color Urine Appearance (Clear) Urine pH (5.0-8.0) Ur Specific [place] (1.001-1.035) Urine Protein (Negative) Urine Glucose (UA) (Negative) Urine Ketones (Negative) Urine Blood (Negative) Urine Nitrite (Negative) Urine Bilirubin (Negative) Urine Urobilinogen (<2.0) mg/dL Ur Leukocyte Esterase (Negative) Urine RBC (0-5) /hpf Urine WBC (0-5) /hpf Urine Mucus (None) /hpf Urine Opiates Screen (NotDetected) Ur Oxycodone Screen (NotDetected) Urine Methadone Screen (NotDetected) Ur Propoxyphene Screen (NotDetected) Ur Barbiturates Screen (NotDetected) U Tricyclic Antidepress (NotDetected) Ur Phencyclidine Scrn (NotDetected) Ur Amphetamines Screen (NotDetected) U Methamphetamines Scrn (NotDetected) U Benzodiazepines Scrn (NotDetected) Urine Cocaine Screen (NotDetected) U Marijuana (THC) Screen (NotDetected) - Radiology Data Radiology results: report reviewed (CT brain negative for acute disease), image reviewed Disposition Clinical Impression: Altered mental status, TIA (transient ischemic attack) Disposition: ADMITTED IP TO THIS [facility] Condition: Fair Is patient prescribed a controlled substance at d/c from ED?: No Referrals: Sophy Simmons DO [Primary Care Provider] - 1-2 days
[2018-12-15 17:20] LABS: Albumin 4.2 g/dL (3.5-5.0); Calcium 9.6 mg/dL (8.4-10.2); Magnesium 1.5 mg/dL (1.6-2.3); Potassium 4.4 mmol/L (3.5-5.1); Total Bilirubin 0.5 mg/dL (0.2-1.3); Total Protein 6.9 g/dL (6.3-8.2)
[2018-12-15] MEDS: SODIUM CHLORIDE 0.9% 1,000 ML IV ONE ×2 (17:22→19:00)
[2018-12-15 17:24] LABS: Amphetamine Screen,Urine Not Detected (NotDetected); Barbiturate Screen,Urine Not Detected (NotDetected); Benzodiazepines Screen,Urine Not Detected (NotDetected); Cocaine Screen,Urine Not Detected (NotDetected); Methadone Screen, Urine Not Detected (NotDetected); Opiate Screen,Urine Not Detected (NotDetected); Oxycodone Screen, Urine Not Detected (NotDetected); Phencyclidine Screen,Urine Not Detected (NotDetected); Tricyclic Antidepressant,Urine Detected (NotDetected); Urn Cannabinoid Scrn Not Detected (NotDetected)
[2018-12-15 17:27] LABS: INR 0.9 (<1.2); Prothrombin Time 9.5 sec (9.0-12.0)
--- NOTE | 2018-12-15 18:15 | CT ---
EXAMINATION TYPE: CT brain wo con DATE OF EXAM: 12/15/2018 COMPARISON: None HISTORY: Memory loss. CT DLP: 1099.4 mGycm Automated exposure control for dose reduction was used. FINDINGS: Ventricles have normal size. There is no mass effect nor midline shift. There is no sign of intracran ial hemorrhage. Calvarium is intact. IMPRESSION: NEGATIVE HEAD CT SCAN.
[2018-12-15] MEDS ORDERED: ASPIRIN 325 MG TAB PO STA (18:54)
[2018-12-15] MEDS: SODIUM CHLORIDE 0.9% 1,000 ML IV SCH (19:37)
[2018-12-15 21:18] LABS: Glucose,Whole Blood 137 mg/dL (75-99)
[2018-12-15 21:35] VITALS: BMI 32.8
[2018-12-15] MEDS ORDERED: ALBUTEROL INHALER 60 PUFF/8 GM INHALER INHALATION PRN (22:04)
[2018-12-15] MEDS ORDERED: ALBUTEROL NEBULIZED 2.5 MG/3 ML INHALATION PRN (22:04)
[2018-12-15] MEDS ORDERED: Magnesium Replacement Protocol 1 EACH MISC MISCELLANE PRN (22:08)
[2018-12-15] MEDS ORDERED: HYDROcodone/APAP 5-325MG 1 EACH TAB PO PRN (22:08)
[2018-12-15] MEDS: ACETAMINOPHEN TAB 325 MG TAB PO PRN (22:51)
[2018-12-15] MEDS: MELATONIN 5 MG TABLET PO SCH (22:51)
[2018-12-15] MEDS: MAGNESIUM SULFATE-D5W PMX 1 GM in DEXTROSE/WATER 1 100ML.BAG IVPB SCH (22:51)
[2018-12-15] MEDS: metFORMIN 500 MG TAB PO SCH (22:51)
[2018-12-15] MEDS: ATORVASTATIN 40 MG TAB PO SCH (22:51)
[2018-12-15] MEDS: NORTRIPTYLINE 25 MG CAP PO SCH (22:52)
[2018-12-15] MEDS: MONTELUKAST 10 MG TAB PO SCH (22:52)
[2018-12-15] MEDS: METOPROLOL TARTRATE 50 MG TAB PO SCH (22:52)
[2018-12-16] MEDS: MAGNESIUM SULFATE-D5W PMX 1 GM in DEXTROSE/WATER 1 100ML.BAG IVPB SCH (00:28)
[2018-12-16] MEDS: SODIUM CHLORIDE 0.9% 1,000 ML IV SCH ×2 (03:46→12:54)
[2018-12-16] MEDS: PANTOPRAZOLE 40 MG TABLET PO SCH (06:09)
[2018-12-16] MEDS: LEVOTHYROXINE 50 MCG TAB PO SCH (06:09)
[2018-12-16 06:20] LABS: Glucose,Whole Blood 108 mg/dL (75-99)
[2018-12-16] MEDS: ACETAMINOPHEN TAB 325 MG TAB PO PRN ×2 (06:36→21:45)
[2018-12-16 07:18] LABS: Magnesium 2.1 mg/dL (1.6-2.3)
[2018-12-16] MEDS: metFORMIN 500 MG TAB PO SCH ×2 (08:51→21:43)
[2018-12-16] MEDS: ASPIRIN 325 MG TAB PO SCH (08:51)
[2018-12-16] MEDS: SERTRALINE 100 MG TAB PO SCH (08:51)
[2018-12-16] MEDS: METOPROLOL TARTRATE 50 MG TAB PO SCH ×2 (08:51→21:44)
[2018-12-16] MEDS: LISINOPRIL 10 MG TAB PO SCH (08:51)
[2018-12-16] MEDS ORDERED: NON-FORMULARY DRUG (L.Acidoph,Paracasei, B.Lactis [Probiotic] 1 CAP) PO SCH (09:00)
[2018-12-16 11:15] LABS: Glucose,Whole Blood 112 mg/dL (75-99)
--- NOTE | 2018-12-16 14:20 | P.CNNES ---
History of Present Illness Consult date: 12/16/18 Reason for Consult: Altered mental status History of Present Illness: Patient is a 68-year-old female with history of hypertension, diabetes, was brought to the hospital for episode of altered mental status with loss of memory. Patient does not remember what happened about the details of the incident, therefore I spoke to patient's daughter on the phone who provided the history. Apparently till 1 PM yesterday patient was fine, ate her breakfast earlier. Patient's daughter took her dad for an eye appointment. When they came back at 3 PM, patient came outside to the car, in a panic mode, asking where her daughter was taking her . She couldn't remember her daughter's date of , how many children she has. Patient could not remember the date month or the year or the president. She could not retain anything that was told to her. There was no loss of movement, facial droop, weakness slurred speech or problem with the vision. Patient was just searching through the house, trying to look for something that she could not tell what she was looking for. Patient could not retain any memory that was presented. The symptoms started improving and resolving about 2-1/2 hours. Patient was brought to the hospital, underwent computed tomography scan of the head which was normal. Patient has no focal deficits, was not a candidate for TPA. Her blood test shows normal CBC, PTT PTT, Chem-7. Magnesium was borderline 1.5, liver functions normal. Troponin negative. Total cholesterol is 222, LDL 124, HDL 45 and triglycerides 263. UA negative, urine drug screen positive for tricyclics. Patient at present is back to baseline, but she has a headache, feels tired. Patient never had such episode ever in the past. Patient has history of hypertension and diabetes for 10 years. She smoked 2 packs per day for 44 years, quit at age 58. Patient denies any alcohol use. She does not take any antiplatelet medication on a regular basis. 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 Her medications for blood pressure was switched. Patient's last hemoglobin A1c 6.0 on 04/09/2018. Patient has history of some possible GI bleed in the past. Patient had a negative nuclear medicine GI bleeding scanning performed 04/11/2018. Review of Systems Constitutional: Reports as per HPI (Loss of memory yesterday. Feels tired, headache. All other review of systems completely unremarkable.) Past Medical History Past Medical History: COPD, Diabetes Mellitus, GI Bleed, Hypertension, Osteoarthritis (OA), Thyroid Disorder Additional Past Medical History / Comment(s): MIGRAINE HEADACHES, PAST HX RAPID HEARTBEAT, diverticulitis History of Any Multi-Drug Resistant Organisms: MRSA Date of last positivie culture/infection: 08/27/05 MDRO Source:: RIGHT MIDDLE FINGER Past Surgical History: Heart Catheterization, Hernia Repair, Orthopedic Surgery Additional Past Surgical History / Comment(s): UMBILICAL HERNIA ,INGUINAL HERNIA, EXPLORATORY LAPAROTOMY,THUMB SURGERY, 12-16-14 TOTAL LT KNEE ARTHRO PLASTY. R Shoulder - rotator cuff. cage in spine L4-5. Past Anesthesia/Blood Transfusion Reactions: Previous Problems w/ Anesthesia Additional Past Anesthesia/Blood Transfusion Reaction / Comment(s): anesthetics - generalized weakness and muscle soreness. Smoking Status: Former smoker - Past Family History Mother Family Medical History: Myocardial Infarction ([place]) Additional Family Medical History / Comment(s): Mother of [place] Brother(s) Family Medical History: Cancer Additional Family Medical History / Comment(s): LEUKEMIA Father Family Medical History: Cancer, Myocardial Infarction ([place]) Additional Family Medical History / Comment(s): SKIN CANCER, father of [place] Medications and Allergies Home Medications Medication Instructions Recorded Confirmed Type Albuterol Sulfate [Proair Hfa] 2 puff INHALATION RT-QID PRN 12/10/14 12/15/18 History Levothyroxine Sodium [Synthroid] 50 mcg PO DAILY 12/10/14 12/15/18 History Montelukast [Singulair] 10 mg PO HS 12/10/14 12/15/18 History Nortriptyline [Pamelor] 50 mg PO HS 12/10/14 12/15/18 History Sertraline [Zoloft] 100 mg PO DAILY 12/10/14 12/15/18 History metFORMIN HCL [Glucophage] 500 mg PO BID 05/02/15 12/15/18 History Atorvastatin [Lipitor] 40 mg PO HS 03/15/17 12/15/18 History Lisinopril [Zestril] 10 mg PO DAILY 03/15/17 12/15/18 History Melatonin 10 mg PO HS 03/15/17 12/15/18 History L.acidoph,Paracasei, B.lactis 1 cap PO DAILY 03/22/17 12/15/18 History [Probiotic] Pantoprazole Sodium [Protonix] 40 mg PO DAILY 04/09/18 12/15/18 History Acetaminophen Tab [Tylenol] 650 mg PO Q4HR PRN tab 04/15/18 12/15/18 Rx Albuterol Nebulized [Ventolin 2.5 mg INHALATION RT-QID PRN 12/15/18 12/15/18 History Nebulized] Metoprolol Tartrate [Lopressor] 25 mg PO BID 12/15/18 12/15/18 History Allergies Allergy/AdvReac Type Severity Reaction Status Date / Time adhesive Allergy Rash/Hives Verified 12/15/18 17:53 simvastatin [From Zocor] Allergy Anaphylaxis Verified 12/15/18 17:53 Sulfa (Sulfonamide Allergy SWELLING Verified 12/15/18 17:53 Antibiotics) OF THROAT,SHORTNESS OF BREATH metal Allergy Rash/Hives Uncoded 04/09/18 15:50 Physical Examination - Vital Signs Vital Signs: Vital Signs Temp Pulse Pulse Resp BP BP Pulse Ox 12/16/18 11:33 97.7 F 75 18 136/77 96 12/16/18 08:45 98 F 82 18 129/79 97 12/16/18 08:23 95 12/16/18 04:00 97.4 F L 78 18 130/63 95 12/16/18 01:54 80 18 133/63 95 12/16/18 00:00 82 18 12/15/18 23:54 82 18 129/67 98 12/15/18 22:00 88 18 12/15/18 21:34 97.9 F 88 18 140/80 99 12/15/18 20:30 97.7 F 86 16 157/95 12/15/18 20:00 17 143/84 97 12/15/18 19:30 146/86 98 12/15/18 19:00 152/84 95 12/15/18 18:30 142/75 99 12/15/18 18:00 89 18 137/72 98 12/15/18 17:30 77 16 129/79 96 12/15/18 17:00 84 16 129/79 97 05/10/19 16:19 97.6 F 80 16 128/78 96 Intake and Output 12/15/18 12/16/18 12/16/18 22:59 06:59 14:59 Intake Total 220 Balance 220 Intake: Oral 220 Other: Voiding Method Toilet Toilet Toilet # Voids 2 1 # Bowel Movements 1 Weight 83.96 kg 84.2 kg On examination patient is an elderly female, in no distress. She is alert and awake fully oriented. Her speech and language functions are normal. On cranial nerve examination pupils are round and reacting to light. Visual rodríguez are full. Extraocular muscles are intact with no nystagmus. Patient has very mild flattening of the left nasolabial fold. Tongue protrudes to the midline. Palatal elevation and sensation normal. On muscle strength testing there is no drift, and the muscle strength is normal in arms and legs distally and proximally, reflexes are symmetric and plantars downgoing. Sensory to touch is equal with no neglect. No ataxia for [id number] or [id number] testing. Tone and bulk of muscles normal. No obvious bruit, no peripheral edema. S1 and S2 audible. Results - Laboratory Findings CBC and BMP: 12/15/18 17:00 12/15/18 17:00 Abnormal Lab Findings: Abnormal Labs 12/15/18 12/15/18 12/15/18 16:52 16:52 17:00 APTT BUN 18 H Glucose 100 H POC Glucose (mg/dL) Magnesium 1.5 L Alkaline Phosphatase 146 H Triglycerides Cholesterol LDL Cholesterol, Calc Ur Leukocyte Esterase Trace H Urine Mucus Rare H U Tricyclic Antidepress Detected H 12/15/18 12/15/18 12/16/18 17:00 21:17 06:19 APTT 21.0 L BUN Glucose POC Glucose (mg/dL) 137 H 108 H Magnesium Alkaline Phosphatase Triglycerides Cholesterol LDL Cholesterol, Calc Ur Leukocyte Esterase Urine Mucus U Tricyclic Antidepress 12/16/18 12/16/18 06:27 11:14 APTT BUN Glucose POC Glucose (mg/dL) 112 H Magnesium Alkaline Phosphatase Triglycerides 263 H Cholesterol 222 H LDL Cholesterol, Calc 124 H Ur Leukocyte Esterase Urine Mucus U Tricyclic Antidepress Assessment and Plan Assessment: * Transient global amnesia. Symptoms resolved in 2-1/2 hours. Differential is between TIA/CVA, focal seizure, less likely migraine * Hypertension * Diabetes, well controlled * Ex-tobacco user. Plan: We will check MRI of the brain to rule out any acute stroke. We will check carotid Doppler to rule out carotid stenosis. We will check EEG to rule out any epileptiform activity. 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 Patient has been started on aspirin 325 mg daily, which I agree. We'll follow after above tests are completed.
--- NOTE | 2018-12-16 15:39 | P.HPIM ---
History of Present Illness H&P Date: 12/16/18 Chief Complaint: Episode of confusion and mental status changes Mora Ashley is a 68-year-old female patient of Dr Sophy Simmons who presented to [facility] emergency room with a chief complaint of episode of confusion and agitation. Patient stated that she was at home with her daughter and she was in her normal state of health, her daughter left around 1 PM and came back at 3 PM yesterday, when her daughter came back patient was confused she was unable to tell the date or how many grandkids she had, she was unable to tell with the president is or what was her daughter date of , patient was also slightly agitated and was looking purrs continuously, she was also complaining of headache. Otherwise there was no other complaints there was no slurred speech no vision or gait disturbance no weakness or numbness in any of her extremities . She was brought into [facility] emergency room computed tomography scan of the brain was done without contrast on 511 did not show any acute abnormality on arrival to emergency room patient started improving her mental status improved and was able to answer questions appropriately. Patient stated that [facility] she had an echocardiogram and stress test recently she said she had some valvular abnormality but not enough to require any intervention otherwise no abnormality found. She denies ever having her carotids checked with ultrasound. She stated that she was having tachycardia she was recently started on metoprolol and verapamil was discontinued she was not taking aspirin at home. Past Medical History Past Medical History: COPD, Diabetes Mellitus, GI Bleed, Hypertension, Osteoarthritis (OA), Thyroid Disorder Additional Past Medical History / Comment(s): MIGRAINE HEADACHES, PAST HX RAPID HEARTBEAT, diverticulitis History of Any Multi-Drug Resistant Organisms: MRSA Date of last positivie culture/infection: 08/27/05 MDRO Source:: RIGHT MIDDLE FINGER Past Surgical History: Heart Catheterization, Hernia Repair, Orthopedic Surgery Additional Past Surgical History / Comment(s): UMBILICAL HERNIA ,INGUINAL HERNIA, EXPLORATORY LAPAROTOMY,THUMB SURGERY, 12-16-14 TOTAL LT KNEE ARTHROPLASTY. R Shoulder - rotator cuff. cage in spine L4-5. Past Anesthesia/Blood Transfusion Reactions: Previous Problems w/ Anesthesia Additional Past Anesthesia/Blood Transfusion Reaction / Comment(s): anesthetics - generalized weakness and muscle soreness. Smoking Status: Former smoker - Past Family History Mother Family Medical History: Myocardial Infarction (NM) Additional Family Medical History / Comment(s): Mother of NM Brother(s) Family Medical History: Cancer Additional Family Medical History / Comment(s): LEUKEMIA Father Family Medical History: Cancer, Myocardial Infarction (NM) Additional Family Medical History / Comment(s): SKIN CANCER, father of NM Medications and Allergies Home Medications Medication Instructions Recorded Confirmed Type Albuterol Sulfate [Proair Hfa] 2 puff INHALATION RT-QID PRN 12/10/14 12/15/18 History Levothyroxine Sodium [Synthroid] 50 mcg PO DAILY 12/10/14 12/15/18 History Montelukast [Singulair] 10 mg PO HS 12/10/14 12/15/18 History Nortriptyline [Pamelor] 50 mg PO HS 12/10/14 12/15/18 History Sertraline [Zoloft] 100 mg PO DAILY 12/10/14 12/15/18 History metFORMIN HCL [Glucophage] 500 mg PO BID 05/02/15 12/15/18 History Atorvastatin [Lipitor] 40 mg PO HS 03/15/17 12/15/18 History Lisinopril [Zestril] 10 mg PO DAILY 03/15/17 12/15/18 History Melatonin 10 mg PO HS 03/15/17 12/15/18 History L.acidoph,Paracasei, B.lactis 1 cap PO DAILY 03/22/17 12/15/18 History [Probiotic] Pantoprazole Sodium [Protonix] 40 mg PO DAILY 04/09/18 12/15/18 History Acetaminophen Tab [Tylenol] 650 mg PO Q4HR PRN tab 04/15/18 12/15/18 Rx Albuterol Nebulized [Ventolin 2.5 mg INHALATION RT-QID PRN 12/15/18 12/15/18 History Nebulized] Metoprolol Tartrate [Lopressor] 25 mg PO BID 12/15/18 12/15/18 History Allergies Allergy/AdvReac Type Severity Reaction Status Date / Time adhesive Allergy Rash/Hives Verified 12/15/18 17:53 simvastatin [From Zocor] Allergy Anaphylaxis Verified 12/15/18 17:53 Sulfa (Sulfonamide Allergy SWELLING Verified 12/15/18 17:53 Antibiotics) OF THROAT,SHORTNESS OF BREATH metal Allergy Rash/Hives Uncoded 04/09/18 15:50 Physical Exam Vitals: Vital Signs Temp Pulse Pulse Resp BP BP Pulse Ox 12/16/18 11:33 97.7 F 75 18 136/77 96 12/16/18 08:45 98 F 82 18 129/79 97 12/16/18 08:23 95 12/16/18 04:00 97.4 F L 78 18 130/63 95 12/16/18 01:54 80 18 133/63 95 12/16/18 00:00 82 18 12/15/18 23:54 82 18 129/67 98 12/15/18 22:00 88 18 12/15/18 21:34 97.9 F 88 18 140/80 99 12/15/18 20:30 97.7 F 86 16 157/95 12/15/18 20:00 17 143/84 97 12/15/18 19:30 146/86 98 12/15/18 19:00 152/84 95 12/15/18 18:30 142/75 99 12/15/18 18:00 89 18 137/72 98 12/15/18 17:30 77 16 129/79 96 12/15/18 17:00 84 16 129/79 97 12/15/18 16:19 97.6 F 80 16 128/78 96 Intake and Output 12/16/18 12/16/18 12/16/18 06:59 14:59 22:59 Intake Total 220 Balance 220 Intake: Oral 220 Other: Voiding Method Toilet Toilet # Voids 2 1 # Bowel Movements 1 Weight 84.2 kg In general patient is alert and oriented 3 in no apparent distress HEENT head normocephalic and atraumatic Neck is supple no JVD no goiter no lymphadenopathy no carotid bruit Chest exam reveals a few scattered rhonchi bilaterally no wheezing Cardiac exam reveals regular heart sounds S1 and S2 no gallops no murmurs Abdomen is soft nontender no organomegaly with normal bowel sounds Extremity exam reveals no edema no cyanosis or clubbing Neurological examination at this time there is no gross focal deficit Mental function patient is alert and oriented 3 Cranial nerves II through XII are intact There is no focal motor deficits strength is 5 out of 5 in all muscle There is no focal sensory deficit Gait is normal Speech is normal Reflexes are 2+ symmetrical Plantars are downward bilaterally Results CBC & Chem 7: 12/15/18 17:00 12/15/18 17:00 Labs: Abnormal Lab Results - Last 24 Hours (Table) 12/15/18 12/15/18 12/15/18 Range/Units 16:52 16:52 17:00 APTT (22.0-30.0) sec BUN 18 H (7-17) mg/dL Glucose 100 H (74-99) mg/dL POC Glucose (mg/dL) (75-99) mg/dL Magnesium 1.5 L (1.6-2.3) mg/dL Alkaline Phosphatase 146 H (38-126) U/L Triglycerides (<150) mg/dL Cholesterol (<200) mg/dL LDL Cholesterol, Calc (0-99) mg/dL Ur Leukocyte Esterase Trace H (Negative) Urine Mucus Rare H (None) /hpf U Tricyclic Antidepress Detected H (NotDetected) 12/15/18 12/15/18 12/16/18 Range/Units 17:00 21:17 06:19 APTT 21.0 L (22.0-30.0) sec BUN (7-17) mg/dL Glucose (74-99) mg/dL POC Glucose (mg/dL) 137 H 108 H (75-99) mg/dL Magnesium (1.6-2.3) mg/dL Alkaline Phosphatase (38-126) U/L Triglycerides (<150) mg/dL Cholesterol (<200) mg/dL LDL Cholesterol, Calc (0-99) mg/dL Ur Leukocyte Esterase (Negative) Urine Mucus (None) /hpf U Tricyclic Antidepress (NotDetected) 12/16/18 12/16/18 Range/Units 06:27 11:14 APTT (22.0-30.0) sec BUN (7-17) mg/dL Glucose (74-99) mg/dL POC Glucose (mg/dL) 112 H (75-99) mg/dL Magnesium (1.6-2.3) mg/dL Alkaline Phosphatase (38-126) U/L Triglycerides 263 H (<150) mg/dL Cholesterol 222 H (<200) mg/dL LDL Cholesterol, Calc 124 H (0-99) mg/dL Ur Leukocyte Esterase (Negative) Urine Mucus (None) /hpf U Tricyclic Antidepress (NotDetected) Thrombosis Risk Factor Assmnt - Choose All That Apply Each Risk Factor Represents 2 Points: Age 61-74 years Thrombosis Risk Factor Assessment Total Risk Factor Score: 2 Thrombosis Risk Factor Assessment Level: Low Risk Assessment and Plan Plan: #1 episodes of confusion and agitation lasting about 4 hours and resolving gradually, likely related to transient ischemic attack At this time neurology are following, MRI was ordered patient was started on aspirin, carotid Doppler was ordered #2 underlying history of hypertension well-controlled on current medications #3 underlying history of hyperlipidemia maintained on atorvastatin continue #4 underlying history of otm-yqhmoxj-ktrgeevcm diabetes mellitus #5 underlying history of hypothyroidism continue Synthroid 50 g daily Will check TSH #6 Daughter states that one other family member had similar symptoms a few weeks ago, daughter was instructed to check carbon monoxide level at home At this time will continue was current management Will add Lovenox 40 mg subcu daily Awaiting MRI and EEG and further neurology input Will follow in a.m.
[2018-12-16 16:07] LABS: Glucose,Whole Blood 120 mg/dL (75-99)
--- NOTE | 2018-12-16 17:37 | US ---
EXAMINATION TYPE: US carotid duplex BILAT DATE OF EXAM: 12/16/2018 COMPARISON: CT Brain CLINICAL HISTORY: 68-year-old female TGA, possible stenosis. Episode of memory loss. TECHNIQUE: Carotid duplex ultrasound examination. Indirect Doppler criteria was utilized. FINDINGS: EXAM MEASUREMENTS: RIGHT: Peak Systolic Velocity (PSV) cm/sec ----- Right CCA: 56.6 ----- Right ICA: 67.1 ----- Right ECA: 72.6 ICA/CCA ratio: 1.2 RIGHT: End Diastole cm/sec ----- Right CCA: 10.0 ----- Right ICA: 20.0 ----- Right ECA: 9.1 LEFT: Peak Systolic Velocity (PSV) cm/sec ----- Left CCA: 53.1 ----- Left ICA: 89.8 ----- Left ECA: 52.9 ICA/CCA ratio: 1.7 LEFT: End Diastole cm/sec ----- Left CCA: 11.3 ----- Left ICA: 31.0 ----- Left ECA: 0.0 VERTEBRALS (direction of flow): Right Vertebral: Antegrade Left Vertebral: Antegrade Rhythm: Normal Haul Truck Driver notes: Nhwg-ky-[id number] to mild plaques noted at bilateral carotid bifurcation, but PSV i s wnl bilaterally IMPRESSION: No hemodynamically significant stenosis appreciated either internal carotid artery. Criteria for Assigning % of Stenosis / Diameter reduction (Estimation based on the indirect measurements of the internal carotid artery velocities (ICA PSV). 1. Normal (no stenosis)=ICA PSV < 125 cm/s: ratio < 2.0: ICA EDV<40 cm/s. 2. Less than 50% stenosis=ICA PSV < 125 cm/s: ratio < 2.0: ICA EDV<40 cm/s. 3. 50 to 69% stenosis=ICA PSV of 125 to 230 cm/s: ration 2.0 ? 4.0: ICA EDV 40-100 cm/s. 4. Greater than 70% stenosis to near occlusion= ICA PSV > 230 cm/s: ratio > 4.0: ICA EDV > 100 cm/s. 5. Near occlusion= ICA PSV velocities may be low or undetectable: variable ratio and ICA EDV. 6. Total occlusion=unable to detect flow.
[2018-12-16 21:18] LABS: Glucose,Whole Blood 108 mg/dL (75-99)
[2018-12-16] MEDS: MELATONIN 5 MG TABLET PO SCH (21:43)
[2018-12-16] MEDS: NORTRIPTYLINE 25 MG CAP PO SCH (21:43)
[2018-12-16] MEDS: ATORVASTATIN 40 MG TAB PO SCH (21:44)
[2018-12-16] MEDS: MONTELUKAST 10 MG TAB PO SCH (21:45)
[2018-12-16] MEDS: IPRATROPIUM 0.5 MG/2.5 ML NEBU INHALATION SCH (22:04)
[2018-12-16] MEDS: SYMBICORT 160-4.5 MCG INHALER INHALATION SCH (22:07)
[2018-12-17 06:01] LABS: Glucose,Whole Blood 103 mg/dL (75-99)
[2018-12-17] MEDS: PANTOPRAZOLE 40 MG TABLET PO SCH (06:41)
[2018-12-17] MEDS: LEVOTHYROXINE 50 MCG TAB PO SCH (06:41)
[2018-12-17] MEDS: IPRATROPIUM 0.5 MG/2.5 ML NEBU INHALATION SCH ×4 (07:42→19:38)
[2018-12-17] MEDS: ASPIRIN 325 MG TAB PO SCH (08:02)
[2018-12-17] MEDS: SERTRALINE 100 MG TAB PO SCH (08:02)
[2018-12-17] MEDS: metFORMIN 500 MG TAB PO SCH ×2 (08:02→22:20)
[2018-12-17] MEDS: LISINOPRIL 10 MG TAB PO SCH (08:02)
[2018-12-17] MEDS: METOPROLOL TARTRATE 50 MG TAB PO SCH ×2 (08:02→22:20)
[2018-12-17 11:25] LABS: Glucose,Whole Blood 100 mg/dL (75-99)
--- NOTE | 2018-12-17 13:11 | EEG ---
ELECTROENCEPHALOGRAM REPORT DATE OF SERVICE: 12/17/2018 PREAMBLE: This is a 68-year-old female who had presented with transient global amnesia. This study is performed to evaluate for any epileptiform activity. Patient's current medications include Zoloft, Pantoprazole, Pamelor, Singulair, Metoprolol, Metformin, Melatonin, Lisinopril, Levothyroxine, [place], Symbicort, Atorvastatin, aspirin, albuterol. EEG FINDINGS: A routine 21 channel awake digital EEG recording was completed utilizing the 10- 20 international system with bipolar and referential montages. The background consists of well developed, well regulated, moderate amplitude activity in 8-9 Hz alpha. Background is posterior dominant and reactive to eye opening and closing. Photic driving response was seen with some flash frequencies. Hyperventilation was not performed. Drowsiness was seen with appearance of bilaterally symmetric theta frequency rhythm. Stage II sleep was seen with appearance of sleep spindles and vertex waves. More deeper stages of sleep were not obtained. No focal or generalized epileptiform activity was seen. EKG rhythm lead revealed no arrhythmia. IMPRESSION: This EEG is normal in wakefulness, drowsiness and brief stage II sleep. No focal paroxysmal or epileptiform activities were seen. MMODL / IJN: [id number] / [facility]
--- NOTE | 2018-12-17 15:43 | P.PN ---
Subjective Progress Note Date: 12/17/18 Patient denies any changes in her condition. No new focal symptoms. Patient states her memory at this time is normal, but still cannot remember what happened at that time. Objective - Vital Signs Vital signs: Vital Signs Temp 97.3 F L 12/17/18 11:30 Pulse 71 12/17/18 11:30 Resp 18 12/17/18 11:30 BP 136/80 12/17/18 11:30 Pulse Ox 95 12/17/18 11:30 Intake & Output 12/16/18 12/17/18 12/17/18 18:59 06:59 18:59 Intake Total 580 240 Output Total 375 Balance 580 -135 Weight 85 kg Intake: Oral 580 240 Output: Urine 375 Other: Voiding Method Toilet Toilet Toilet # Voids 1 1 1 # Bowel Movements 1 - Exam Mental status, speech language functions are normal. Cranial nerves normal. Muscle strength is normal. No ataxia. Sensations normal. - Labs CBC & Chem 7: 12/15/18 17:00 12/15/18 17:00 Labs: Abnormal Lab Results - Last 24 Hours (Table) 12/16/18 12/16/18 12/17/18 Range/Units 16:06 21:14 05:59 POC Glucose (mg/dL) 120 H 108 H 103 H (75-99) mg/dL 12/17/18 Range/Units 11:24 POC Glucose (mg/dL) 100 H (75-99) mg/dL Assessment and Plan Assessment: * Transient global amnesia. Symptoms resolved in 2-1/2 hours. Differential is between TIA/CVA, focal seizure, less likely migraine * Hypertension * Diabetes, well controlled * Ex-tobacco user. Plan: Await MRI of the brain to rule out any acute stroke. Carotid Doppler normal, with no evidence of carotid stenosis. EEG normal with no evidence of any epileptiform activity. Patient has a salad bar clerk and she claims had a 2-D echo performed 3 weeks ago, therefore no need to repeat it. Continue aspirin 325 mg daily. If the MRI is normal, then clear for discharge. Please call neurology at [phone] if any concerns.
[2018-12-17 16:01] LABS: Glucose,Whole Blood 103 mg/dL (75-99)
[2018-12-17] MEDS: SYMBICORT 160-4.5 MCG INHALER INHALATION SCH (19:38)
[2018-12-17] MEDS: ACETAMINOPHEN TAB 325 MG TAB PO PRN (21:00)
[2018-12-17 21:07] LABS: Glucose,Whole Blood 122 mg/dL (75-99)
[2018-12-17] MEDS: MELATONIN 5 MG TABLET PO SCH (22:19)
[2018-12-17] MEDS: ATORVASTATIN 40 MG TAB PO SCH (22:19)
[2018-12-17] MEDS: NORTRIPTYLINE 25 MG CAP PO SCH (22:20)
[2018-12-17] MEDS: MONTELUKAST 10 MG TAB PO SCH (22:21)
[2018-12-18 04:52] VITALS: RESP 20
[2018-12-18 06:18] LABS: Glucose,Whole Blood 105 mg/dL (75-99)
[2018-12-18] MEDS: LEVOTHYROXINE 50 MCG TAB PO SCH (06:59)
[2018-12-18] MEDS: PANTOPRAZOLE 40 MG TABLET PO SCH (06:59)
[2018-12-18] MEDS: ACETAMINOPHEN TAB 325 MG TAB PO PRN (07:10)
[2018-12-18] MEDS: SERTRALINE 100 MG TAB PO SCH (08:50)
[2018-12-18] MEDS: ASPIRIN 325 MG TAB PO SCH (08:50)
[2018-12-18] MEDS: metFORMIN 500 MG TAB PO SCH (08:50)
[2018-12-18] MEDS: METOPROLOL TARTRATE 50 MG TAB PO SCH (08:50)
[2018-12-18] MEDS: LISINOPRIL 10 MG TAB PO SCH (08:50)
[2018-12-18] MEDS: IPRATROPIUM 0.5 MG/2.5 ML NEBU INHALATION SCH ×2 (09:09→12:58)
--- NOTE | 2018-12-18 11:24 | MR ---
MR brain without contrast HISTORY: Transient Global amnesia Multiplanar multisequence imaging through the brain Correlation CT brain 12/15/2017 Restricted diffusion. No hemorrhage or hydrocephalus. There are normal vascular flow voids present. P eriventricular, subcortical, juxtacortical hyperintensities are present on inversion recovery and T2- weighted sequences, largest in the right frontal lobe measures approximately 13 mm in anterior wooden tank erector ior dimension on axial image 23 of the inversion recovery dataset, left frontal lobe shows a focus on axial image 22 measuring 11 mm. There are likely 50 lesions present. Orbits show symmetric appearanc e. Paranasal sinuses are well aerated, mastoid air cells are normal. Cerebellopontine angles, corpus callosum, cervical medullary junction are normal. There is a partially empty sella. Cortical atrophy is likely normal for age. IMPRESSION: No subacute ischemia is evident. Findings may represent chronic small vessel ischemia, ag e related atrophy.
[2018-12-18 11:43] VITALS: BP 144/77; TEMP 97.9
[2018-12-18 11:52] LABS: Glucose,Whole Blood 89 mg/dL (75-99)
[2018-12-18 13:00] VITALS: PULSE 78
--- NOTE | 2018-12-18 13:21 | P.DS ---
Providers Date of admission: 12/15/18 18:54 Expected date of discharge: 12/18/18 Attending physician: Caesar Pisano Consults: 12/15/18 18:54 Consult Physician Routine Consulting Provider: Zander Floyd Consult Reason/Comments: tia,cva Do you want consulting provider notified?: Yes Primary care physician: Sophy Simmons [facility] Course: Discharge diagnosis #1 episodes of confusion and agitation lasting about 4 hours and resolving gradually, likely related to transient ischemic attack. Computed tomography scan of brain is negative. MRI of the brain no evidence of acute intracranial process. Does show chronic small vessel ischemia and age-related atrophy. EEG was normal. carotid Doppler negative for any significant hemodynamic stenosis. Patient did have recent echo and repeat echo was not required Patient seen by neurology. Patient also had transient global amnesia again this could be related to a TIA. No evidence of CVA on MRI or CAT scan of the brain. No evidence of seizure on EEG #2 underlying history of hypertension well-controlled on current medications #3 underlying history of hyperlipidemia maintained on atorvastatin continue #4 underlying history of wgz-gtkmsln-aownlhflt diabetes mellitus #5 underlying history of hypothyroidism continue Synthroid 50 g daily #6 Daughter states that one other family member had similar symptoms a few weeks ago, daughter was instructed to check carbon monoxide level at home #7 hypomagnesemia resolved Hospital course Mora Ashley is a 68-year-old female patient of Dr Sophy Simmons who presented to [facility] emergency room with a chief complaint of episode of confusion and agitation. Patient stated that she was at home with her daughter and she was in her normal state of health, her daughter left around 1 PM and came back at 3 PM yesterday, when her daughter came back patient was confused she was unable to tell the date or how many grandkids she had, she was unable to tell with the president is or what was her daughter date of , patient was also slightly agitated and was looking purrs continuously, she was also complaining of headache. Otherwise there was no other complaints there was no slurred speech no vision or gait disturbance no weakness or numbness in any of her extremities . She was brought into [facility] emergency room computed tomography scan of the brain was done without contrast on 12/16 did not show any acute abnormality on arrival to emergency room patient started improving her mental status improved and was able to answer questions appropriately. Patient stated that [facility] she had an echocardiogram and stress test recently she said she had some valvular abnormality but not enough to require any intervention otherwise no abnormality found. She denies ever having her carotids checked with ultrasound. She stated that she was having tachycardia she was recently started on metoprolol and verapamil was discontinued she was not taking aspirin at home. 12/18/2018 patient is medically stable for discharge. Patient's symptoms had completely resolved after about 4 hours. Testing has been negative. No snacking arrhythmias noted on telemetry monitoring. Patient has been cleared by neurology for discharge. Patient's symptoms were possibly related to a TIA. Aspirin has been added to her regimen. She's been educated to continue her cholesterol medication and to continue with good control of both her blood pressure and blood sugars. Patient will follow-up with neurology in 1 week. We'll have her follow-up with her PCP. I performed an examination of the patient and discussed their management with the physician National Van Truck Driver. I have reviewed the Physician National Van Truck Driver's notes and agree with the documented findings and plan of care Patient Condition at Discharge: Stable Plan - Discharge Summary Discharge Rx Participant: No New Discharge Prescriptions: New Aspirin 325 mg PO DAILY #30 tab Continue Nortriptyline [Pamelor] 50 mg PO HS Montelukast [Singulair] 10 mg PO HS Sertraline [Zoloft] 100 mg PO DAILY Albuterol Sulfate [Proair Hfa] 2 puff INHALATION RT-QID PRN PRN Reason: Shortness Of Breath Levothyroxine Sodium [Synthroid] 50 mcg PO DAILY metFORMIN HCL [Glucophage] 500 mg PO BID Atorvastatin [Lipitor] 40 mg PO HS Lisinopril [Zestril] 10 mg PO DAILY Melatonin 10 mg PO HS L.acidoph,Paracasei, B.lactis [Probiotic] 1 cap PO DAILY Pantoprazole Sodium [Protonix] 40 mg PO DAILY Acetaminophen Tab [Tylenol] 650 mg PO Q4HR PRN tab PRN Reason: Fever And/Or Mild Pain Metoprolol Tartrate [Lopressor] 25 mg PO BID Albuterol Nebulized [Ventolin Nebulized] 2.5 mg INHALATION RT-QID PRN PRN Reason: Shortness Of Breath Budesonide-Formot 160-4.5 Mcg [Symbicort 160-4.5 Mcg Inhaler] 1 puff INHALATION HS Aclidinium [place] [Tudorza Pressair] 1 puff PO HS Discharge Medication List Albuterol Sulfate [Proair Hfa] 2 puff INHALATION RT-QID PRN 12/10/14 [History] Levothyroxine Sodium [Synthroid] 50 mcg PO DAILY 12/10/14 [History] Montelukast [Singulair] 10 mg PO HS 12/10/14 [History] Nortriptyline [Pamelor] 50 mg PO HS 12/10/14 [History] Sertraline [Zoloft] 100 mg PO DAILY 12/10/14 [History] metFORMIN HCL [Glucophage] 500 mg PO BID 05/02/15 [History] Atorvastatin [Lipitor] 40 mg PO HS 03/15/17 [History] Lisinopril [Zestril] 10 mg PO DAILY 03/15/17 [History] Melatonin 10 mg PO HS 03/15/17 [History] L.acidoph,Paracasei, B.lactis [Probiotic] 1 cap PO DAILY 03/22/17 [History] Pantoprazole Sodium [Protonix] 40 mg PO DAILY 04/09/18 [History] Acetaminophen Tab [Tylenol] 650 mg PO Q4HR PRN tab 04/15/18 [Rx] Albuterol Nebulized [Ventolin Nebulized] 2.5 mg INHALATION RT-QID PRN 12/15/18 [History] Metoprolol Tartrate [Lopressor] 25 mg PO BID 12/15/18 [History] Aclidinium [place] [Tudorza Pressair] 1 puff PO HS 12/16/18 [History] Budesonide-Formot 160-4.5 Mcg [Symbicort 160-4.5 Mcg Inhaler] 1 puff INHALATION HS 12/16/18 [History] Aspirin 325 mg PO DAILY #30 tab 12/18/18 [Rx] Follow up Appointment(s)/Referral(s): Zander Floyd MD [STAFF PHYSICIAN] - 1 Week (Neurologist. ) Sophy Simmons DO [Primary Care Provider] - 12/21/18 11:00 am (With Ngozi CALI) Patient Instructions/Handouts: Transient Ischemic Attack (DC), Cholesterol and Your Health (GEN) Activity/Diet/Wound Care/Special Instructions: Diet: cardiac, diabetic Activity: as tolerated Discharge Disposition: HOME SELF-CARE
== END 2018-12-18 14:53 | disposition home or self-care (01) ==
LOC: EC 16:07 → 3SCARD 18:54
PROVIDERS: ADMIT Internal Medicine; ATTEND Internal Medicine
DX: R41.0 Disorientation, unspecified (principal); R45.1 Restlessness and agitation; G45.4 Transient global amnesia; E83.42 Hypomagnesemia; I10 Essential (primary) hypertension; E11.9 Type 2 diabetes mellitus without complications; J44.9 Chronic obstructive pulmonary disease, unspecified; M19.90 Unspecified osteoarthritis, unspecified site; R00.0 Tachycardia, unspecified; G43.909 Migraine, unspecified, not intractable, without status migrainosus; K57.90 Diverticulosis of intestine, part unspecified, without perforation or abscess without bleeding; E03.9 Hypothyroidism, unspecified; I38 Endocarditis, valve unspecified; F41.9 Anxiety disorder, unspecified; E78.5 Hyperlipidemia, unspecified; Z79.890 Hormone replacement therapy; Z79.84 Long term (current) use of oral hypoglycemic drugs; Z79.899 Other long term (current) drug therapy; Z88.2 Allergy status to sulfonamides; Z88.8 Allergy status to other drugs, medicaments and biological substances; Z91.048 Other nonmedicinal substance allergy status; Z86.14 Personal history of Methicillin resistant Staphylococcus aureus infection; Z96.652 Presence of left artificial knee joint; Z87.891 Personal history of nicotine dependence; Z82.49 Family history of ischemic heart disease and other diseases of the circulatory system; Z80.6 Family history of leukemia; Z80.8 Family history of malignant neoplasm of other organs or systems
CPT/HCPCS: 96361 ×4; 96365; 96366 ×2; 99285; 36415; 94640 ×6; 94760 ×2; 95819; 93005; 97116; 97161; 92523; 80061; 80053; 82140; 83735 ×2; 84484; 85025; 85610; 85730; 81001; 80306; 93880; 70450; 70551; G0378 ×4; J3475 ×2

== ENCOUNTER → 2018-12-26 | Outpatient (CLI) | payer MEDICARE ==
--- NOTE | 2019-01-29 10:32 | EM ---
EVENT MONITOR AGE: 68 SEX: Female INDICATIONS:: Patient was monitored between the 26 of December and the 2018. The rhythm strip revealed sinus mechanism with single PACs. There was no evidence of bradycardia or malignant tachycardia. CONCLUSION: 1. Sinus mechanism baseline rhythm. 2. Single PACs. 3. No evidence of malignant ventricular ectopic activity. MMJASE / MARYN: [id number] /
== END | disposition home or self-care (01) ==
LOC: RADECHMAIN 10:11
PROVIDERS: ATTEND Nurse Practitioner Family
DX: I49.9 Cardiac arrhythmia, unspecified (principal)
CPT/HCPCS: 93270

== ENCOUNTER 2019-04-17 10:37 | Day surgery (SDC) | payer MEDICARE ==
[2019-04-12 09:10] VITALS: BMI 31.6
[2019-04-17 11:14] LABS: Glucose,Whole Blood 117 mg/dL (75-99)
[2019-04-17 11:20] VITALS: TEMP 98
[2019-04-17] MEDS ORDERED: fentaNYL (PF) 50 MCG/ML 2 ML AMP ONE (11:46)
[2019-04-17] MEDS ORDERED: IV FLUID CONTINUATION 1,000 ML IV ONE (12:01)
[2019-04-17] MEDS ORDERED: BENZOCAINE SPRAY 1 CAN MUCOUS MEM ONE (12:01)
[2019-04-17] MEDS ORDERED: MIDAZOLAM (PF) 2 MG/2 ML VIAL IV ONE ×3 (12:14→12:18)
[2019-04-17 12:31] VITALS: PULSE 85
--- NOTE | 2019-04-17 13:17 | ECHOT ---
TRANSESOPHAGEAL ECHOCARDIOGRAM DATE OF SERVICE: April 17, 2019 PERFORMING PHYSICIAN: Everardo Pereyra MD. PROCEDURE PERFORMED: Transesophageal echocardiogram. INDICATION: Rule out PFO. COMPLICATION: None. LEVEL OF SEDATION: Moderate with sedation length of 15 minutes. PROCEDURE DESCRIPTION: After obtaining an informed consent, the patient was brought to the transesophageal echocardiogram suite. The patient was turned into left lateral position. The throat was sprayed using lidocaine. A pulse oximetry and heart rate monitors were attached to the patient. Subsequently I did advance the transesophageal echocardiogram probe to the mid esophagus where 2D echocardiogram images, color Doppler images, pulse-wave Doppler images as well as continuous-wave Doppler were applied. The procedure was completed without any complication. FINDING: The left ventricular dimension and systolic function appeared to be within normal limits. The ejection fraction appeared to be in the range of 55% to 60%. The right ventricle is of normal size and function. The left atrium appeared to be within normal limits for dimension. The left atrial appendage appeared to be free from any thrombus. The interatrial septum appeared to be intact. The is no evidence of PFO seen. The aortic valve is trileaflet valve with aortic sclerosis without stenosis with mild insufficiency. The mitral valve seems to be mildly thickened with mild MR. Normal tricuspid valve and pulmonic valve. CONCLUSION: 1. Normal left ventricular dimension and systolic function. 2. Normal cardiac chamber sizes. 3. Intact interatrial septum without any evidence of patent foramen ovale. 4. Normal left atrial appendage without any evidence of thrombus. 5. Aortic sclerosis without stenosis with mild insufficiency. 6. mitral valve leaflets with mild mitral regurgitation. 7. Normal tricuspid valve and pulmonic valve. 8. No evidence of pericardial effusion. MMODL / IJN: [id number] /
[2019-04-17 15:55] VITALS: BP 138/67; RESP 18
== END 2019-04-17 15:00 | disposition home or self-care (01) ==
LOC: CATHCVL 10:37
PROVIDERS: ATTEND Internal Medicine Interventional Cardiology
DX: I08.0 Rheumatic disorders of both mitral and aortic valves (principal); R00.0 Tachycardia, unspecified; J44.9 Chronic obstructive pulmonary disease, unspecified; E78.5 Hyperlipidemia, unspecified; I10 Essential (primary) hypertension; I69.311 Memory deficit following cerebral infarction; R01.1 Cardiac murmur, unspecified; Z82.3 Family history of stroke; E11.9 Type 2 diabetes mellitus without complications; Z82.49 Family history of ischemic heart disease and other diseases of the circulatory system; Z87.891 Personal history of nicotine dependence; Z79.84 Long term (current) use of oral hypoglycemic drugs; Z79.890 Hormone replacement therapy; Z79.51 Long term (current) use of inhaled steroids; Z79.899 Other long term (current) drug therapy; Z88.2 Allergy status to sulfonamides; Z88.8 Allergy status to other drugs, medicaments and biological substances
CPT/HCPCS: 93312; 93320; 93325; J2250

== ENCOUNTER 2019-08-21 13:56 | Emergency (ER) | payer MEDICARE ==
[2019-08-21 14:03] VITALS: TEMP 97.8
[2019-08-21] MEDS ORDERED: SODIUM CHLORIDE 0.9% 500 ML 500 ML IV STA (14:31)
--- NOTE | 2019-08-21 14:38 | ED ---
General Adult HPI - General Chief complaint: Neuro Symptoms/Deficit Stated complaint: Facial numbness & swelling Time Seen by Provider: 08/21/19 14:00 Source: patient, RN notes reviewed, old records reviewed Mode of arrival: ambulatory Limitations: no limitations - History of Present Illness Initial comments: This is a 69-year-old female presents emergency Department with a past medical history significant for TIA. Patient also has high blood pressure is on lisinopril. Patient went in to see her primary medical care doctor because 2:30 in the morning she woke up with some numbness of the left side of her face and lip. Patient states she has normal sensation to light touch and pain but it feels as though it's asleep. Patient also noted that her left upper lip is swollen. Patient states this has occurred before with a left upper lip swelled and then it went away on its own. Patient denies any difficulty breathing or swallowing. Patient denies any speech disturbance. Patient denies any headache patient denies numbness weakness. Patient denies any visual disturbance. Patient denies any extremity weakness or numbness or tingling. - Related Data Home Medications Medication Instructions Recorded Confirmed Albuterol Sulfate [Proair Hfa] 2 puff INHALATION RT-QID PRN 12/10/14 08/21/19 Levothyroxine Sodium [Synthroid] 50 mcg PO DAILY 12/10/14 08/21/19 Montelukast [Singulair] 10 mg PO HS 12/10/14 08/21/19 Nortriptyline [Pamelor] 50 mg PO HS 12/10/14 08/21/19 Sertraline [Zoloft] 100 mg PO DAILY 12/10/14 08/21/19 metFORMIN HCL [Glucophage] 500 mg PO BID 05/02/15 08/21/19 Atorvastatin [Lipitor] 40 mg PO HS 03/15/17 08/21/19 Lisinopril [Zestril] 10 mg PO DAILY 03/15/17 08/21/19 Melatonin 10 mg PO HS 03/15/17 08/21/19 L.acidoph,Paracasei, B.lactis 1 cap PO DAILY 03/22/17 08/21/19 [Probiotic] Pantoprazole Sodium [Protonix] 40 mg PO DAILY 04/09/18 08/21/19 Albuterol Nebulized [Ventolin 2.5 mg INHALATION RT-TID 12/15/18 08/21/19 Nebulized] Metoprolol Tartrate [Lopressor] 25 mg PO BID 12/15/18 08/21/19 Budesonide-Formot 160-4.5 Mcg 1 puff INHALATION RT-HS 12/16/18 08/21/19 [Symbicort 160-4.5 Mcg Inhaler] Allergy Otc 10mg(Unknown) 1 tab PO DAILY 08/21/19 08/21/19 Furosemide [Lasix] 20 mg PO DAILY PRN 08/21/19 08/21/19 Allergies Allergy/AdvReac Type Severity Reaction Status Date / Time adhesive Allergy Rash/Hives Verified 08/21/19 16:32 Sulfa (Sulfonamide Allergy Anaphylaxis Verified 08/21/19 16:32 Antibiotics) simvastatin [From Zocor] AdvReac MUSCLE PAIN Verified 08/21/19 16:32 metal Allergy Rash/Hives Uncoded 08/21/19 14:03 Review of Systems ROS Statement: Those systems with pertinent positive or pertinent negative responses have been documented in the HPI. ROS Other: All systems not noted in ROS Statement are negative. Past Medical History Past Medical History: COPD, CVA/TIA, Diabetes Mellitus, GI Bleed, Hypertension, Osteoarthritis (OA), Thyroid Disorder Additional Past Medical History / Comment(s): MIGRAINE HEADACHES, PAST HX RAPID HEARTBEAT, diverticulitis, tia-12/15/18 History of Any Multi-Drug Resistant Organisms: MRSA Date of last positivie culture/infection: 08/27/05 MDRO Source:: RIGHT MIDDLE FINGER Past Surgical History: Heart Catheterization, Hernia Repair, Orthopedic Surgery Additional Past Surgical History / Comment(s): UMBILICAL HERNIA ,INGUINAL HERNIA, EXPLORATORY LAPAROTOMY,THUMB SURGERY, 12-16-14 TOTAL L tka, R Shoulder - rotator cuff. cage in spine L4-5. COLONOSCOPY Past Anesthesia/Blood Transfusion Reactions: Previous Problems w/ Anesthesia Additional Past Anesthesia/Blood Transfusion Reaction / Comment(s): anesthetics - generalized weakness and muscle soreness. Past Psychological History: Anxiety Smoking Status: Former smoker - Past Family History Mother Family Medical History: Myocardial Infarction ([place]) Additional Family Medical History / Comment(s): Mother of [place] Brother(s) Family Medical History: Cancer Additional Family Medical History / Comment(s): LEUKEMIA Father Family Medical History: Cancer, Myocardial Infarction ([place]) Additional Family Medical History / Comment(s): SKIN CANCER, father of [place] General Exam - General Exam Comments Initial Comments: GENERAL: Patient is well-developed and well-nourished. Patient is nontoxic and well- hydrated and is in no acute distress. ENT: Neck is soft and supple. No significant lymphadenopathy is noted. Oropharynx is clear. Moist mucous membranes. Neck has full range of motion without eliciting any pain. EYES: The sclera were anicteric and conjunctiva were pink and moist. Extraocular movements were intact and pupils were equal round and reactive to light. Eyelids were unremarkable. PULMONARY: Unlabored respirations. Good breath sounds bilaterally. No audible rales rhonchi or wheezing was noted. CARDIOVASCULAR: There is a regular rate and rhythm without any murmurs gallops or rubs. ABDOMEN: Soft and nontender with normal bowel sounds. No palpable organomegaly was noted. There is no palpable pulsatile mass. SKIN: Skin is clear with no lesions or rashes and otherwise unremarkable. NEUROLOGIC: Patient is alert and oriented x3. Cranial nerves II through XII are grossly intact. Motor and sensory are also intact. Normal speech, volume and content. Symmetrical smile. Cerebellar exam grossly intact. Patient has an NIH of 0. Patient has a swollen upper left lip which makes it look like she has a slight droop but she is able to move all of her facial muscles normally. MUSCULOSKELETAL: Normal extremities with adequate strength and full range of motion. No lower extremity swelling or edema. No calf tenderness. LYMPHATICS: No significant lymphadenopathy is noted PSYCHIATRIC: Normal psychiatric evaluation. Limitations: no limitations Course Vital Signs 08/21/19 08/21/19 13:59 15:03 Temperature 97.8 F Pulse Rate 84 78 Respiratory 20 18 Rate Blood Pressure 161/91 140/87 O2 Sat by Pulse 97 97 Oximetry Medical Decision Making - Medical Decision Making CT of the rain shows no acute abnormality. Chest x-ray shows no acute abnormality. Patient had no objective findings when she arrived or on discharge. Patient swollen lip was improving while in the emergency department. I explained to the patient I thought this was injured edema possibly from the lisinopril that she should follow up with her doctor about what to use incentive lisinopril. I told the patient she had any actual objective numbness or weakness or slurred speech to return to the emergency department immediately patient states she already had an carotid ultrasound in December. - Lab Data Result diagrams: 08/21/19 14:32 08/21/19 14:32 Lab Results 08/21/19 08/21/19 08/21/19 Range/Units 14:32 14:32 14:32 WBC 9.2 (3.8-10.6) k/uL RBC 4.47 (3.80-5.40) m/uL Hgb 12.7 (11.4-16.0) gm/dL Hct 39.3 (34.0-46.0) % MCV 87.9 (80.0-100.0) fL MCH 28.4 (25.0-35.0) pg MCHC 32.4 (31.0-37.0) g/dL RDW 13.2 (11.5-15.5) % Plt Count 344 (150-450) k/uL Neutrophils % 71 % Lymphocytes % 17 % Monocytes % 6 % Eosinophils % 3 % Basophils % 1 % Neutrophils # 6.6 (1.3-7.7) k/uL Lymphocytes # 1.6 (1.0-4.8) k/uL Monocytes # 0.5 (0-1.0) k/uL Eosinophils # 0.3 (0-0.7) k/uL Basophils # 0.1 (0-0.2) k/uL PT 9.4 (9.0-12.0) sec INR 0.9 (<1.2) APTT 21.3 L (22.0-30.0) sec Sodium 139 (137-145) mmol/L Potassium 4.6 (3.5-5.1) mmol/L Chloride 103 (98-107) mmol/L Carbon Dioxide 29 (22-30) mmol/L Anion Gap 7 mmol/L BUN 19 H (7-17) mg/dL Creatinine 0.79 (0.52-1.04) mg/dL Est GFR (CKD-EPI)AfAm 89 (>60 ml/min/1.73 sqM) Est GFR (CKD-EPI)NonAf 77 (>60 ml/min/1.73 sqM) Glucose 106 H (74-99) mg/dL Calcium 9.4 (8.4-10.2) mg/dL Magnesium (1.6-2.3) mg/dL Total Bilirubin 0.6 (0.2-1.3) mg/dL AST 22 (14-36) U/L ALT 16 (4-34) U/L Alkaline Phosphatase 140 H (38-126) U/L Troponin I (0.000-0.034) ng/mL Total Protein 7.1 (6.3-8.2) g/dL Albumin 4.2 (3.5-5.0) g/dL 08/21/19 08/21/19 Range/Units 14:32 14:32 WBC (3.8-10.6) k/uL RBC (3.80-5.40) m/uL Hgb (11.4-16.0) gm/dL Hct (34.0-46.0) % MCV (80.0-100.0) fL MCH (25.0-35.0) pg MCHC (31.0-37.0) g/dL RDW (11.5-15.5) % Plt Count (150-450) k/uL Neutrophils % % Lymphocytes % % Monocytes % % Eosinophils % % Basophils % % Neutrophils # (1.3-7.7) k/uL Lymphocytes # (1.0-4.8) k/uL Monocytes # (0-1.0) k/uL Eosinophils # (0-0.7) k/uL Basophils # (0-0.2) k/uL PT (9.0-12.0) sec INR (<1.2) APTT (22.0-30.0) sec Sodium (137-145) mmol/L Potassium (3.5-5.1) mmol/L Chloride (98-107) mmol/L Carbon Dioxide (22-30) mmol/L Anion Gap mmol/L BUN (7-17) mg/dL Creatinine (0.52-1.04) mg/dL Est GFR (CKD-EPI)AfAm (>60 ml/min/1.73 sqM) Est GFR (CKD-EPI)NonAf (>60 ml/min/1.73 sqM) Glucose (74-99) mg/dL Calcium (8.4-10.2) mg/dL Magnesium 1.6 (1.6-2.3) mg/dL Total Bilirubin (0.2-1.3) mg/dL AST (14-36) U/L ALT (4-34) U/L Alkaline Phosphatase (38-126) U/L Troponin I <0.012 (0.000-0.034) ng/mL Total Protein (6.3-8.2) g/dL Albumin (3.5-5.0) g/dL Disposition Clinical Impression: Angioedema Disposition: HOME SELF-CARE Condition: Good Instructions (If sedation given, give patient instructions): Angioedema (ED) Additional Instructions: Patient should hold lisinopril and follow-up with her family doctor tomorrow for another antihypertensive medication. Is patient prescribed a controlled substance at d/c from ED?: No Referrals: Sophy Simmons DO [Primary Care Provider] - 1-2 days Time of Disposition: 17:10
[2019-08-21 14:52] LABS: Basophils # (A) 0.1 k/uL (0-0.2); Basophils % (A) 1 %; Eosinophils # (A) 0.3 k/uL (0-0.7); Eosinophils % (A) 3 %; HCT 39.3 % (34.0-46.0); HGB 12.7 gm/dL (11.4-16.0); Lymphocytes # (A) 1.6 k/uL (1.0-4.8); Lymphocytes % (A) 17 %; MCH 28.4 pg (25.0-35.0); MCHC 32.4 g/dL (31.0-37.0); MCV 87.9 fL (80.0-100.0); Mean Platelet Volume 6.3; Monocytes # (A) 0.5 k/uL (0-1.0); Monocytes % (A) 6 %; Neutrophils # (A) 6.6 k/uL (1.3-7.7); Neutrophils % (A) 71 %; Platelet Count 344 k/uL (150-450); RBC 4.47 m/uL (3.80-5.40); RDW 13.2 % (11.5-15.5); WBC 9.2 k/uL (3.8-10.6)
[2019-08-21 14:59] LABS: Albumin 4.2 g/dL (3.5-5.0); Calcium 9.4 mg/dL (8.4-10.2); Potassium 4.6 mmol/L (3.5-5.1); Total Bilirubin 0.6 mg/dL (0.2-1.3); Total Protein 7.1 g/dL (6.3-8.2)
--- NOTE | 2019-08-21 15:00 | XR ---
EXAMINATION TYPE: XR chest 2V DATE OF EXAM: 08/21/2019 COMPARISON: Prior chest x-ray 05/04/2015 HISTORY: Altered mental status TECHNIQUE: Frontal and lateral views of the chest are obtained. FINDINGS: There are overlying cardiac leads. There is eventration of the right hemidiaphragm. The aor ta is dense. There is no focal air space opacity, pleural effusion, or pneumothorax seen. The cardia c silhouette size is within normal limits. The osseous structures are intact. IMPRESSION: No acute cardiopulmonary process.
--- NOTE | 2019-08-21 15:06 | CT ---
EXAMINATION TYPE: CT brain wo con DATE OF EXAM: 08/21/2019 COMPARISON: 12/15/2018 HISTORY: LT SIDE FACIAL NUMBNESS/SWELLING CT DLP: 1055.[address] of the brain was performed. The ventricles, basal cisterns and sulci overlying the cerebral convexities demonstrate mild enlargem ent. There is no evidence for intracranial hemorrhage or sulcal effacement. There is decreased attenuation about the periventricular white matter and deep white matter of both c erebral hemispheres, compatible with chronic small vessel ischemia. Differential diagnosis does inclu de demyelination. No mass effects are seen.No midline shift. Osseous calvarium is intact. If symptoms persist consider MRI. IMPRESSION: 1. Age related atrophic and chronic small vessel ischemic change without acute intracranial process s een at this time.
[2019-08-21 15:08] VITALS: RESP 18
[2019-08-21 15:09] LABS: INR 0.9 (<1.2); Prothrombin Time 9.4 sec (9.0-12.0)
[2019-08-21 15:11] LABS: Partial Thromboplastin Time 21.3 sec (22.0-30.0)
[2019-08-21 17:30] VITALS: BP 140/72; PULSE 82
== END 2019-08-21 17:20 | disposition home or self-care (01) ==
LOC: EC 13:56
DX: T78.3XXA Angioneurotic edema, initial encounter (principal); J44.9 Chronic obstructive pulmonary disease, unspecified; E11.9 Type 2 diabetes mellitus without complications; I10 Essential (primary) hypertension; M19.90 Unspecified osteoarthritis, unspecified site; E07.9 Disorder of thyroid, unspecified; F41.9 Anxiety disorder, unspecified; Z87.891 Personal history of nicotine dependence; Z88.2 Allergy status to sulfonamides; Z88.8 Allergy status to other drugs, medicaments and biological substances; Z91.048 Other nonmedicinal substance allergy status; Z79.51 Long term (current) use of inhaled steroids; Z79.84 Long term (current) use of oral hypoglycemic drugs; Z79.890 Hormone replacement therapy; Z79.899 Other long term (current) drug therapy; Z86.14 Personal history of Methicillin resistant Staphylococcus aureus infection; Z86.73 Personal history of transient ischemic attack (TIA), and cerebral infarction without residual deficits; Z96.652 Presence of left artificial knee joint
CPT/HCPCS: 36415; 70450; 71046; 80053; 83735; 84484; 85025; 85610; 85730; 99285

== ENCOUNTER → 2020-01-10 | Outpatient (CLI) | payer MEDICARE ==
--- NOTE | 2020-01-10 11:51 | CT ---
EXAMINATION TYPE: CT chest w con DATE OF EXAM: 01/10/2020 COMPARISON: Prior chest x-ray October 24, 2019 HISTORY: COPD per order and patient. CT DLP: 668 mGycm. Automated Exposure Control for Dose Reduction was Utilized. TECHNIQUE: CT scan of the thorax is performed following with IV Contrast, patient injected with 100 ml mL of Isovue 300. FINDINGS: LUNGS: Mild to moderate underlying emphysematous changes redemonstrated. No suspicious nodules or mas ses. No suspicious focal groundglass opacity or consolidation. No pleural effusion or pneumothorax is identified bilaterally. Tracheobronchial tree is patent. MEDIASTINUM: There are no greater than 1 cm hilar or mediastinal lymph nodes. No cardiomegaly or pe ricardial effusion is seen. OTHER: Subcentimeter simple appearing thin-walled cyst laterally upper pole of the left kidney axial image 55 noted. Mild to moderate mixed plaque in the visualized aorta. Moderate calcifications at the level of the aortic valve. [id number] multilevel spurring in the thoracic spine. IMPRESSION: Mild to moderate underlying emphysematous changes without acute pulmonary process.
== END | disposition home or self-care (01) ==
LOC: RADCTMAIN 08:55
PROVIDERS: ATTEND Internal Medicine Critical Care Medicine
DX: J43.9 Emphysema, unspecified (principal); Z91.09 Other allergy status, other than to drugs and biological substances; Z88.2 Allergy status to sulfonamides; Z88.8 Allergy status to other drugs, medicaments and biological substances
CPT/HCPCS: 82565; 84520; 71260; 36415; Q9967

== ENCOUNTER → 2020-02-08 | Outpatient (CLI) | payer MEDICARE ==
--- NOTE | 2020-02-08 15:07 | XR ---
EXAMINATION TYPE: XR cervical spine limited DATE OF EXAM: 02/08/2020 COMPARISON: NONE HISTORY: Arm numbness TECHNIQUE: 3 views submitted FINDINGS: Odontoid intact. Prevertebral soft tissue structures within normal limits. There is degener ative disc disease at C3 4-5, C5-6, C6-C7 with posterior spondylosis and anterior osteophyte formatio n. Facet arthropathy noted. Soft tissue neck calcification on the right noted. IMPRESSION: 1. Multilevel moderate to severe degenerative disc disease with posterior spondylosis. Suspect forami nal encroachment. 2. Calcification soft tissue the right neck likely related to atherosclerotic change of the right car otid artery.
--- NOTE | 2020-02-08 15:09 | XR ---
EXAM TYPE: LUMBAR SPINE X RAY SERIES COMPARISON: 09/16/2015 HISTORY: Pain and numbness TECHNIQUE: 4 views are submitted. FINDINGS: Postsurgical change L4-L5 with grade 1 anterolisthesis. Severe degenerative disc disease L5-S1 with v acuum disc. Pedicles intact. Alignment anatomic. Vacuum disc at T11-T12. Atherosclerotic change of th e aorta. Mild diffuse osteopenia. IMPRESSION: 1. Postsurgical change with grade 1 anterolisthesis of L4 on L5. 2. Multilevel degenerative disc disease.
== END | disposition home or self-care (01) ==
LOC: RADMRIMAIN 14:40
PROVIDERS: ATTEND Chiropractor
DX: M51.36 Other intervertebral disc degeneration, lumbar region (principal); M43.16 Spondylolisthesis, lumbar region; M47.816 Spondylosis without myelopathy or radiculopathy, lumbar region; M99.01 Segmental and somatic dysfunction of cervical region; M53.1 Cervicobrachial syndrome; R20.2 Paresthesia of skin; M99.03 Segmental and somatic dysfunction of lumbar region
CPT/HCPCS: 72040; 72100

== ENCOUNTER 2022-04-29 07:08 | Day surgery (SDC) | payer MEDICARE ==
[2022-04-28 09:15] VITALS: BMI 31.3
[2022-04-29] MEDS ORDERED: LACTATED RINGERS 1,000 ML IV SCH (07:19)
[2022-04-29 07:33] VITALS: TEMP 97
[2022-04-29 07:42] LABS: Glucose,Whole Blood 145 mg/dL (70-110)
[2022-04-29] MEDS ORDERED: LIDOCAINE 2% INJ 20 MG/ML (2 ML VIAL) ONE (07:46)
[2022-04-29] MEDS ORDERED: PROPOFOL 10 MG/ML 20 ML VIAL IV ONE (07:46)
--- NOTE | 2022-04-29 07:51 | P.GSHP ---
History of Present Illness H&P Date: 04/29/22 Chief Complaint: GERD, diarrhea This a 71-year-old female who presents today for EGD and colonoscopy. Patient's had issues with GERD and diarrhea. Past Medical History Past Medical History: COPD, CVA/TIA, Diabetes Mellitus, GERD/Reflux, GI Bleed, Hyperlipidemia, Hypertension, Osteoarthritis (OA), Thyroid Disorder Additional Past Medical History / Comment(s): MIGRAINE HEADACHES, PAST HX RAPID HEARTBEAT, diverticulitis, tia-12/15/18 History of Any Multi-Drug Resistant Organisms: MRSA Date of last positivie culture/infection: 08/27/05 MDRO Source:: RIGHT MIDDLE FINGER Past Surgical History: Back Surgery, Heart Catheterization, Hernia Repair, Orthopedic Surgery Additional Past Surgical History / Comment(s): UMBILICAL HERNIA ,INGUINAL HERNIA, EXPLORATORY LAPAROTOMY,THUMB SURGERY, 12-16-14 TOTAL L tka, R Shoulder - rotator cuff. cage in spine L4-5. COLONOSCOPY Past Anesthesia/Blood Transfusion Reactions: Previous Problems w/ Anesthesia Additional Past Anesthesia/Blood Transfusion Reaction / Comment(s): anesthetics - generalized weakness and muscle soreness. Smoking Status: Former smoker - Past Family History Mother Family Medical History: Myocardial Infarction ([place]) Additional Family Medical History / Comment(s): Mother of [place] Brother(s) Family Medical History: Cancer Additional Family Medical History / Comment(s): LEUKEMIA Father Family Medical History: Cancer, Myocardial Infarction ([place]) Additional Family Medical History / Comment(s): SKIN CANCER, father of [place] Medications and Allergies Home Medications Medication Instructions Recorded Confirmed Type Albuterol Sulfate [Proair Hfa] 2 puff INHALATION RT-QID PRN 12/10/14 04/29/22 History Levothyroxine Sodium [Synthroid] 50 mcg PO DAILY 12/10/14 04/29/22 History Montelukast [Singulair] 10 mg PO HS 12/10/14 04/29/22 History Nortriptyline [Pamelor] 50 mg PO HS 12/10/14 04/29/22 History Sertraline [Zoloft] 100 mg PO BID 12/10/14 04/29/22 History metFORMIN HCL [Glucophage] 500 mg PO BID 05/02/15 04/29/22 History Atorvastatin [Lipitor] 40 mg PO HS 03/15/17 04/29/22 History Melatonin [Melatonin Dissolving 10 mg PO HS 03/15/17 04/29/22 History Tablet] L.acidoph,Paracasei, B.lactis 1 cap PO DAILY 03/22/17 04/29/22 History [Probiotic] Pantoprazole Sodium [Protonix] 40 mg PO DAILY 04/09/18 04/29/22 History Albuterol Nebulized [Ventolin 2.5 mg INHALATION RT-TID 12/15/18 04/29/22 History Nebulized] Metoprolol Tartrate [Lopressor] 25 mg PO BID 12/15/18 04/29/22 History Budesonide-Formot 160-4.5 Mcg 1 puff INHALATION BID 12/16/18 04/29/22 History [Symbicort 160-4.5 Mcg Inhaler] Allergy Otc 10mg(Unknown) 1 tab PO DAILY 08/21/19 04/29/22 History Furosemide [Lasix] 20 mg PO DAILY PRN 08/21/19 04/29/22 History Formoterol Fumarate [Perforomist] 20 mcg INHALATION BID 04/28/22 04/29/22 History Losartan [Cozaar] 50 mg PO DAILY 04/28/22 04/29/22 History Topiramate 50 mg PO BID 04/28/22 04/29/22 History Yuperlri 1 dose INHALATION DAILY 04/28/22 04/29/22 History Allergies Allergy/AdvReac Type Severity Reaction Status Date / Time adhesive Allergy Rash/Hives Verified 04/29/22 07:37 Sulfa (Sulfonamide Allergy Anaphylaxis Verified 04/29/22 07:37 Antibiotics) simvastatin [From Zocor] AdvReac MUSCLE PAIN Verified 04/29/22 07:37 metal Allergy Rash/Hives Uncoded 04/29/22 07:37 Surgical - Exam Vital Signs Temp Pulse Resp BP Pulse Ox 97.0 F L 82 19 138/66 97 04/29/22 07:32 04/29/22 07:32 04/29/22 07:32 04/29/22 07:32 04/29/22 07:32 - General well developed, well nourished, no distress - Eyes PERRL - ENT normal pinna - Neck no masses - Respiratory normal expansion - Cardiovascular Rhythm: regular - Abdomen Abdomen: soft, non tender Results - Labs Abnormal Lab Results - Last 24 Hours (Table) 04/29/22 Range/Units 07:40 POC Glucose (mg/dL) 145 H (70-110) mg/dL Assessment and Plan Assessment: GERD, diarrhea. We'll perform EGD and colonoscopy.
--- NOTE | 2022-04-29 08:05 | P.OP ---
Date of Procedure: 04/29/22 Preoperative Diagnosis: GERD Diarrhea Postoperative Diagnosis: Antral gastritis Small sliding hiatal hernia Esophagitis Diverticulosis External hemorrhoids Procedure(s) Performed: EGD Colonoscopy Anesthesia: MAC Surgeon: Tyrone Schneider Pathology: other (Antrum, esophagus) Condition: stable Disposition: PACU Description of Procedure: The patient's placed on the endoscopy table in the lateral position.. She received IV sedation. The gastroscope placed oropharynx passed in the esophagus and stomach. Scope was placed through the pylorus. The first and second portion of the duodenum appeared normal. Scope was then brought back the antrum this was mildly inflamed. A biopsies performed. Scope was then retroflexed and remainder the stomach appeared normal. The GE junction was examined. The GE junction was at 38 cm. There was a small sliding hiatal hernia. The distal esophagus appeared mildly inflamed. A biopsies was performed. The proximal esophagus appeared normal. The withdrawn for patient. Next digital rectal exam was performed there were internal and Hemorrhoids noted. The flexible colonoscope was then placed patient anus and passed throughout the entire colon. The ileocecal valve was visualized. The cecum, ascending and transverse colon appeared normal. The descending and sigmoid colon had extensive diverticular changes. Scope was brought back the rectum this appeared normal. However due the patient's symptoms of diarrhea a random rectal biopsies performed. The scope was withdrawn for patient.
[2022-04-29 09:12] VITALS: RESP 16
[2022-04-29 09:32] VITALS: BP 127/82; PULSE 66
== END 2022-04-29 10:00 | disposition home or self-care (01) ==
LOC: ORWHC2ENDO 07:08
PROVIDERS: ATTEND Surgery
DX: K29.50 Unspecified chronic gastritis without bleeding (principal); K64.4 Residual hemorrhoidal skin tags; K21.00 Gastro-esophageal reflux disease with esophagitis, without bleeding; K44.9 Diaphragmatic hernia without obstruction or gangrene; K57.30 Diverticulosis of large intestine without perforation or abscess without bleeding; J44.9 Chronic obstructive pulmonary disease, unspecified; E11.9 Type 2 diabetes mellitus without complications; E78.5 Hyperlipidemia, unspecified; I10 Essential (primary) hypertension; M19.90 Unspecified osteoarthritis, unspecified site; E07.9 Disorder of thyroid, unspecified; G43.909 Migraine, unspecified, not intractable, without status migrainosus; R53.1 Weakness; Z87.891 Personal history of nicotine dependence; Z86.73 Personal history of transient ischemic attack (TIA), and cerebral infarction without residual deficits; Z98.890 Other specified postprocedural states; Z95.5 Presence of coronary angioplasty implant and graft; Z96.652 Presence of left artificial knee joint; Z82.49 Family history of ischemic heart disease and other diseases of the circulatory system; Z80.6 Family history of leukemia; Z80.8 Family history of malignant neoplasm of other organs or systems; Z79.51 Long term (current) use of inhaled steroids; Z79.84 Long term (current) use of oral hypoglycemic drugs; Z79.890 Hormone replacement therapy; Z88.2 Allergy status to sulfonamides; Z91.048 Other nonmedicinal substance allergy status; Z88.8 Allergy status to other drugs, medicaments and biological substances
CPT/HCPCS: 88305; 45380; 43239; J2704; J2001

== ENCOUNTER → 2022-04-30 | Outpatient (CLI) | payer MEDICARE ==
--- NOTE | 2022-04-30 07:47 | US ---
EXAMINATION TYPE: US gallbladder DATE OF EXAM: 04/30/2022 COMPARISON: CT abdomen pelvis 04/09/2018. CLINICAL HISTORY: R10.11 ABD PAIN. Right upper quadrant abdomen pain, diarrhea, white stool TECHNIQUE: Multiple sonographic images of the right upper quadrant are obtained. FINDINGS: EXAM MEASUREMENTS: Liver Length: 16.9 cm Gallbladder Wall: 0.12 cm CBD: 0.44 cm Right Kidney: 10.3 x 3.3 x 4.6 cm Pancreas: Tail obscured by overlying bowel gas. Visualized portions appear slightly heterogeneous re lated to atrophy on CT. Liver: Increased attenuation . This appearance limits evaluation for intrahepatic masses. No gross evidence of intrahepatic biliary ductal dilatation or suspicious mass. Gallbladder: wnl, no gallstones, pericholecystic fluid, or wall thickening. Evidence for sonographic Weldon's sign: No CBD: wnl Right Kidney: wnl , no hydronephrosis or shadowing calculi. IMPRESSION: 1. No ultrasound evidence for acute process. 2. Hepatic steatosis.
== END | disposition home or self-care (01) ==
LOC: RADUSWWP 07:03
PROVIDERS: ATTEND Surgery
DX: K76.0 Fatty (change of) liver, not elsewhere classified (principal)
CPT/HCPCS: 76705

== ENCOUNTER → 2022-05-03 | Outpatient (CLI) | payer MEDICARE ==
--- NOTE | 2022-05-03 09:47 | CT ---
EXAMINATION TYPE: CT abdomen pelvis wo con DATE OF EXAM: 05/03/2022 HISTORY: Intestinal obstruction. Symptoms of diarrhea and pain with discolored stool per patient. CT DLP: 934 mGycm. Automated Exposure Control for Dose Reduction was Utilized. TECHNIQUE: CT scan of the abdomen and pelvis is performed with oral but without IV contrast. IV cont rast not given due to diminished renal function. COMPARISON: Prior CT April 09, 2018 FINDINGS: Within the limitations of a non-contrast study, the following observations are made. LUNG BASES: No significant abnormality is appreciated. LIVER/GB: No significant abnormality is appreciated. PANCREAS: Moderate generalized atrophy redemonstrated. SPLEEN: No significant abnormality is seen. ADRENALS: No significant abnormality is seen. KIDNEYS: No renal stones seen bilaterally. There is near 1.0 cm hyperdense focus right kidney midpole level coronal image 67 favors hemorrhagic cyst BOWEL: Oral contrast reaches level of terminal ileum making evaluation of the colon slightly suboptim al. Stomach appears within normal limits. No suspicious small or large bowel dilatation. Few divertic kimberly in the left and sigmoid colon. No CT evidence for acute diverticulitis. Mild fecal prominence not ed hepatic flexure. GENITAL ORGANS: Retroflexed small size uterus correlates with patient's postmenopausal age. LYMPH NODES: No greater than 1cm abdominal or pelvic lymph nodes are appreciated. OSSEOUS STRUCTURES: Surgical changes with posterior interpedicular rods and screws and metallic disc material at L4-L5 level is redemonstrated. Moderate disc space narrowing L5-S1 level redemonstrated. OTHER: Tiny fat-containing umbilical hernia redemonstrated. Mild to moderate calcified plaque of the aorta extends into branch vessels. IMPRESSION: No bowel obstruction. Mild proximal colonic fecal stasis is thought1 present. Some distal colonic diverticulosis without convincing CT evidence for acute diverticulitis.
== END | disposition home or self-care (01) ==
LOC: RADCTMAIN 07:08
PROVIDERS: ATTEND Surgery
DX: K57.30 Diverticulosis of large intestine without perforation or abscess without bleeding (principal); K56.41 Fecal impaction
CPT/HCPCS: 82565; 84520; 74176; 36415; Q9967

== ENCOUNTER → 2022-05-05 | Outpatient (CLI) | payer MEDICARE ==
--- NOTE | 2022-05-05 10:23 | NM ---
Nuclear medicine hepatobiliary scan. HISTORY: Pain. DOSAGE: The patient received 1.7 micrograms of CCK and 4.5 mCi of Technetium 99m Choletec. FINDINGS: There is normal hepatic extraction. The gallbladder is seen by 45 minutes. There is bilia ry to bowel clearance by 15 minutes. Ejection fraction is 89%. IMPRESSION: 1. No evidence of cholecystitis. 2. Ejection fraction 89% can occasionally be seen with hyperdynamic gallbladder. Correlate clinically .
== END | disposition home or self-care (01) ==
LOC: RADNMMAIN 07:08
PROVIDERS: ATTEND Surgery
DX: R10.11 Right upper quadrant pain (principal)
CPT/HCPCS: 78227; A9537; J2805

== ENCOUNTER 2022-05-26 09:54 | Day surgery (SDC) | payer MEDICARE ==
[2022-05-25 11:29] VITALS: BMI 32.4
[~2022-05-26 09:54] MED LIST changes: +ACETAMINOPHEN TAB 500 MG TAB PO PRN; -DEXAMETHASONE SOD PHOSPHATE 10 MG/ML 1 ML VIAL IV ONE; +DEXAMETHASONE SOD PHOSPHATE 4 MG/ML 1 ML VIAL IV ONE; +HEPARIN SODIUM,PORCINE/PF 5,000 UNIT/0.5 ML SYRINGE SQ PRN; +HYDROmorphone 0.5 MG/0.5 ML SYRINGE IVP PRN; -HYDROmorphone 1 MG/ML 1 ML SYRINGE IVP PRN; -MIDAZOLAM 2 MG/2 ML VIAL IV PRN; +ONDANSETRON 4 MG/2 ML VIAL IVP ONE; -ceFAZolin 2 GM in SODIUM CHLORIDE 0.9% 100 ML IVPB ONE
--- NOTE | 2022-05-26 10:39 | P.GSHP ---
History of Present Illness H&P Date: 05/26/22 Chief Complaint: Right upper quadrant pain This a 71-year-old female who presents today for laparoscopic cholestatic. Patient's echo with right quadrant pain. Her recent HIDA scan shows a hyperdynamic gallbladder with a 89% ejection fraction Past Medical History Past Medical History: COPD, CVA/TIA, Diabetes Mellitus, GERD/Reflux, GI Bleed, Hyperlipidemia, Hypertension, Osteoarthritis (OA), Thyroid Disorder Additional Past Medical History / Comment(s): MIGRAINE HEADACHES, PAST HX RAPID HEARTBEAT, diverticulitis, TIA 2019, History of Any Multi-Drug Resistant Organisms: MRSA Date of last positivie culture/infection: 08/27/05 MDRO Source:: RIGHT MIDDLE FINGER Past Surgical History: Heart Catheterization, Hernia Repair, Orthopedic Surgery Additional Past Surgical History / Comment(s): UMBILICAL HERNIA ,INGUINAL HERNIA, EXPLORATORY LAPAROTOMY,THUMB SURGERY, 12-16-14 TOTAL L KNEE, R Shoulder - rotator cuff. cage in spine L4-5. COLONOSCOPY, BILATERAL CATARACT SURGERY, BILATERAL HAND SURGERY Past Anesthesia/Blood Transfusion Reactions: Previous Problems w/ Anesthesia Additional Past Anesthesia/Blood Transfusion Reaction / Comment(s): anesthetics - generalized weakness and muscle soreness. Smoking Status: Former smoker - Past Family History Mother Family Medical History: Myocardial Infarction ([place]) Additional Family Medical History / Comment(s): Mother of [place] Brother(s) Family Medical History: Cancer Additional Family Medical History / Comment(s): LEUKEMIA Father Family Medical History: Cancer, Myocardial Infarction ([place]) Additional Family Medical History / Comment(s): SKIN CANCER, father of [place] Medications and Allergies Home Medications Medication Instructions Recorded Confirmed Type Albuterol Sulfate [Proair Hfa] 2 puff INHALATION RT-QID PRN 12/10/14 05/26/22 History Levothyroxine Sodium [Synthroid] 50 mcg PO DAILY 12/10/14 05/26/22 History Montelukast [Singulair] 10 mg PO HS 12/10/14 05/26/22 History Sertraline [Zoloft] 100 mg PO BID 12/10/14 05/26/22 History metFORMIN HCL [Glucophage] 500 mg PO BID 05/02/15 05/26/22 History Atorvastatin [Lipitor] 40 mg PO HS 03/15/17 05/26/22 History Melatonin [Melatonin Dissolving 10 mg PO HS 03/15/17 05/26/22 History Tablet] Pantoprazole Sodium [Protonix] 40 mg PO HS 04/09/18 05/26/22 History Albuterol Nebulized [Ventolin 2.5 mg INHALATION RT-TID PRN 12/15/18 05/26/22 History Nebulized] Metoprolol Tartrate [Lopressor] 25 mg PO BID 12/15/18 05/26/22 History Formoterol Fumarate [Perforomist] 20 mcg INHALATION BID 04/28/22 05/26/22 History Losartan [Cozaar] 50 mg PO DAILY 04/28/22 05/26/22 History Topiramate 25 mg PO HS 04/28/22 05/26/22 History Yuperlri 1 dose INHALATION DAILY 04/28/22 05/25/22 History Budesonide 0.5 mg INHALATION BID 05/25/22 05/26/22 History Famotidine [Pepcid] 20 mg PO DAILY 05/25/22 05/26/22 History Loperamide [Imodium] 2 - 4 mg PO DIRECTED PRN 05/25/22 05/26/22 History Allergies Allergy/AdvReac Type Severity Reaction Status Date / Time adhesive Allergy Rash/Hives Verified 05/26/22 10:19 lisinopril Allergy Cough Verified 05/26/22 10:19 Sulfa (Sulfonamide Allergy Anaphylaxis Verified 05/26/22 10:19 Antibiotics) simvastatin [From Zocor] AdvReac MUSCLE PAIN Verified 05/26/22 10:19 metal Allergy Rash/Hives Uncoded 05/26/22 10:19 Surgical - Exam - General well developed, well nourished, no distress - Eyes PERRL - ENT normal pinna - Neck no masses - Respiratory normal expansion - Cardiovascular Rhythm: regular - Abdomen Abdomen: soft, non tender Assessment and Plan Assessment: Right upper quadrant pain Chronic cholecystitis Hyperdynamic gallbladder We'll perform laparoscopic cholecystectomy
[2022-05-26 10:41] LABS: Glucose,Whole Blood 127 mg/dL (70-110)
[2022-05-26] MEDS ORDERED: LIDOCAINE 2% INJ 20 MG/ML (2 ML VIAL) ONE (10:54)
[2022-05-26] MEDS ORDERED: ROCURONIUM 10 MG/ML (5 ML VIAL) IV ONE (10:54)
[2022-05-26] MEDS ORDERED: KETAMINE 10 MG/ML 20 ML VIAL ONE (10:54)
[2022-05-26] MEDS ORDERED: PROPOFOL 10 MG/ML 20 ML VIAL IV ONE (10:54)
[2022-05-26] MEDS ORDERED: ePHEDrine 50 MG/ML 1 ML VIAL ONE (10:54)
[2022-05-26] MEDS ORDERED: fentaNYL (PF) 50 MCG/ML 2 ML AMP ONE (10:54)
[2022-05-26] MEDS ORDERED: NEOSTIGMINE 1 MG/ML 10 ML VIAL ONE (10:54)
[2022-05-26] MEDS ORDERED: SUCCINYLCHOLINE CHLORIDE 200 MG/10 ML VIAL IV ONE (10:54)
[2022-05-26] MEDS ORDERED: GLYCOPYRROLATE 0.2 MG/ML 2 ML VIAL ONE (10:54)
[2022-05-26] MEDS ORDERED: MIDAZOLAM 2 MG/2 ML VIAL ONE (10:54)
[2022-05-26] MEDS ORDERED: LIDOCAINE 1%-EPI 1:100,000 20 ML VIAL SQ ONE ×2 (10:56→11:18)
--- NOTE | 2022-05-26 11:31 | P.OP ---
Date of Procedure: 05/26/22 Preoperative Diagnosis: chronic cholecystitis Postoperative Diagnosis: Chronic cholecystitis Procedure(s) Performed: Laparoscopic cholecystectomy Anesthesia: TOSHIA Surgeon: Tyrone Schneider Estimated Blood Loss (ml): 5 Pathology: other (Gallbladder) Condition: stable Disposition: PACU Description of Procedure: The patient was placed on the operating table. The patient received a general endotracheal tube anesthesia. The patients abdomen was prepped and draped in the usual sterile fashion. Through an infraumbilical stab incision, the fascia of the anterior abdominal wall was grasped with a pair of Kochers and then the Veress needle was placed in the peritoneal cavity. Position of the Veress needle was confirmed with positive drop test. The abdomen was then insufflated. After adequate insufflation, the 10 mm trocar was placed in the peritoneal cavity. Following this the laparoscope was placed in the peritoneal cavity. The patient was placed in the head-up, right side up position and then a 5 mm trocar was placed in the right lateral and right subcostal position under direct visualization. A 8 mm trocar was placed in the epigastric position. The gallbladder was grasped in the fundus and infundibulum. Traction on the gallbladder was placed in the lateral and the cephalad positions. The triangle of Calot was visualized.. The cystic duct was bluntly dissected until the union of the cystic duct and common bile duct was seen. A critical view of safety was achieved. The cystic duct was then divided and sealed with the Harmonic scissors. A PDS Endoloop was then placed throughout the cystic duct stump. The cystic artery divided and sealed with the Harmonic scissors. The gallbladder was then removed from the liver bed using Harmonic scissors. The gallbladder was then extracted through the epigastric port site. Operative field was checked for any bleeding spots and Harmonic scissors was used to coagulate the liver bed. The abdomen was irrigated. The trocars were removed. The skin was closed using interrupted 3-0 Vicryl suture. Dermabond dressing were applied. The patient tolerated the procedure well.
[2022-05-26 12:07] VITALS: TEMP 97.2
[2022-05-26] MEDS ORDERED: LACTATED RINGERS 1,000 ML IV ONE ×2 (13:00)
[2022-05-26 14:39] VITALS: RESP 20
[2022-05-26] MEDS ORDERED: IBUPROFEN 200 MG TAB PO ONE (14:46)
[2022-05-26 15:26] VITALS: BP 120/73; PULSE 68
== END 2022-05-26 15:40 | disposition home or self-care (01) ==
LOC: OR 09:54
PROVIDERS: ATTEND Surgery
DX: K81.1 Chronic cholecystitis (principal); J44.9 Chronic obstructive pulmonary disease, unspecified; E11.9 Type 2 diabetes mellitus without complications; K21.9 Gastro-esophageal reflux disease without esophagitis; Z86.73 Personal history of transient ischemic attack (TIA), and cerebral infarction without residual deficits; M19.90 Unspecified osteoarthritis, unspecified site; E78.5 Hyperlipidemia, unspecified; I10 Essential (primary) hypertension; E07.9 Disorder of thyroid, unspecified; Z82.49 Family history of ischemic heart disease and other diseases of the circulatory system; Z98.890 Other specified postprocedural states; Z98.41 Cataract extraction status, right eye; Z98.42 Cataract extraction status, left eye; Z87.891 Personal history of nicotine dependence; Z79.51 Long term (current) use of inhaled steroids; Z79.84 Long term (current) use of oral hypoglycemic drugs; Z79.899 Other long term (current) drug therapy; Z88.2 Allergy status to sulfonamides
CPT/HCPCS: 88304; 47562; J2250; J0330; J1100; J2710; J0690; J2405; J3010; J2704; J1644; J2001

== ENCOUNTER → 2022-12-02 | Outpatient (CLI) | payer MEDICARE ==
--- NOTE | 2022-12-02 11:00 | CT ---
EXAMINATION TYPE: CT abdomen pelvis w con DATE OF EXAM: 12/02/2022 COMPARISON: 05/03/2022 HISTORY: RT side burning pain under ribs, diverticulitis CT DLP: 1368 mGycm CONTRAST: CT scan of the abdomen and pelvis is performed with Oral Contrast and with IV Contrast, patient injec radha with 100 mL of Isovue 300. FINDINGS: LUNG BASES-: No visible nodule. No infiltrate. LIVER/GB: The gallbladder is surgically absent. No space occupying hepatic lesion. Biliary tree is of normal caliber. PANCREAS: No inflammation. No distinct mass. SPLEEN: No splenic enlargement. No lesion seen. ADRENALS: No nodule. No thickening. KIDNEYS/BLADDER: No hydronephrosis. No nephrolithiasis. No distinct renal mass. Urinary bladder g rossly unremarkable. BOWEL: Normal appendix. Normal bowel caliber. No inflammation. GENITAL ORGANS: No gross abnormality. LYMPH NODES: No greater than 1cm abdominal or pelvic lymph nodes are appreciated. AORTA: No significant abnormality. OSSEOUS STRUCTURES: No significant abnormality is seen. OTHER: No significant additional abnormality is seen. IMPRESSION: 1. No acute process seen. Sigmoid diverticulosis without diverticulitis.
== END | disposition home or self-care (01) ==
LOC: RADCTMAIN 08:12
PROVIDERS: ATTEND Surgery
DX: K57.32 Diverticulitis of large intestine without perforation or abscess without bleeding (principal); K57.30 Diverticulosis of large intestine without perforation or abscess without bleeding
CPT/HCPCS: 82565; 84520; 74177; 36415; Q9967

== ENCOUNTER 2023-03-08 15:47 | Emergency (ER) | payer MEDICARE ==
[2023-03-08 17:16] VITALS: RESP 22; TEMP 98.3
[2023-03-08] MEDS ORDERED: ALBUTEROL HFA INHALER INHALATION STA (17:41)
[2023-03-08] MEDS ORDERED: methylPREDNISolone SOD SUCCI 125 MG/2 ML VIAL IV STA (17:41)
--- NOTE | 2023-03-08 18:33 | ED ---
General Adult HPI - General Chief complaint: Shortness of Breath Stated complaint: Covid + Time Seen by Provider: 03/08/23 18:00 Source: patient, RN notes reviewed, old records reviewed Mode of arrival: wheelchair Limitations: no limitations - History of Present Illness Initial comments: This is a 72-year-old female presents emergency Department stating she's been sick since last Tuesday. Patient states she took 2 home test and he were both positive for cold. Patient states she started off with sore throat and has progressed to shortness of breath and wheezing. Patient states she has a history of COPD. Patient states she feels very fatigued and weak. Patient denies any chest pain or palpitations per patient denies lightheadedness or dizziness. Patient received the initial 2 vaccines of Motrin and she's had cold and once before. - Related Data Home Medications Medication Instructions Recorded Confirmed Albuterol Sulfate [Proair Hfa] 2 puff INHALATION RT-QID PRN 12/10/14 03/08/23 Levothyroxine Sodium [Synthroid] 50 mcg PO DAILY 12/10/14 03/08/23 Montelukast [Singulair] 10 mg PO HS 12/10/14 03/08/23 Sertraline [Zoloft] 100 mg PO BID 12/10/14 03/08/23 metFORMIN HCL [Glucophage] 500 mg PO BID 05/02/15 03/08/23 Melatonin [Melatonin Dissolving 10 mg PO HS 03/15/17 03/08/23 Tablet] Pantoprazole Sodium [Protonix] 40 mg PO HS 04/09/18 03/08/23 Albuterol Nebulized [Ventolin 2.5 mg INHALATION RT-TID PRN 12/15/18 03/08/23 Nebulized] Metoprolol Tartrate [Lopressor] 25 mg PO BID 12/15/18 03/08/23 Formoterol Fumarate [Perforomist] 20 mcg INHALATION RT-BID 04/28/22 03/08/23 Losartan [Cozaar] 50 mg PO DAILY 04/28/22 03/08/23 Topiramate 25 mg PO BID 04/28/22 03/08/23 Yuperlri 175 mcg INHALATION RT-DAILY 04/28/22 03/08/23 Budesonide 0.5 mg INHALATION RT-BID 05/25/22 03/08/23 Loperamide [Imodium] 2 - 4 mg PO DIRECTED PRN 05/25/22 03/08/23 Acetaminophen Tab [Tylenol] 650 mg PO Q6H PRN 03/08/23 03/08/23 Atorvastatin Calcium [Lipitor] 80 mg PO HS 03/08/23 03/08/23 Furosemide [Lasix] 20 mg PO DAILY PRN 03/08/23 03/08/23 Nortriptyline [Pamelor] 50 mg PO HS 03/08/23 03/08/23 diphenhydrAMINE [Benadryl] 25 mg PO QID PRN 03/08/23 03/08/23 Previous Rx's Medication Instructions Recorded predniSONE [Deltasone] 40 mg PO DAILY #8 tab 03/08/23 Allergies Allergy/AdvReac Type Severity Reaction Status Date / Time adhesive Allergy Rash/Hives Verified 03/08/23 18:17 Sulfa (Sulfonamide Allergy Anaphylaxis Verified 03/08/23 18:17 Antibiotics) lisinopril AdvReac Cough Verified 03/08/23 18:17 simvastatin [From Zocor] AdvReac MUSCLE PAIN Verified 03/08/23 18:17 metal Allergy Rash/Hives Uncoded 03/08/23 18:17 Review of Systems ROS Statement: Those systems with pertinent positive or pertinent negative responses have been documented in the HPI. ROS Other: All systems not noted in ROS Statement are negative. Past Medical History Past Medical History: COPD, CVA/TIA, Diabetes Mellitus, GERD/Reflux, GI Bleed, Hyperlipidemia, Hypertension, Osteoarthritis (OA), Thyroid Disorder Additional Past Medical History / Comment(s): MIGRAINE HEADACHES, PAST HX RAPID HEARTBEAT, diverticulitis, TIA 2019, History of Any Multi-Drug Resistant Organisms: MRSA Date of last positivie culture/infection: 08/27/05 MDRO Source:: RIGHT MIDDLE FINGER Past Surgical History: Heart Catheterization, Hernia Repair, Orthopedic Surgery Additional Past Surgical History / Comment(s): UMBILICAL HERNIA ,INGUINAL HERNIA, EXPLORATORY LAPAROTOMY,THUMB SURGERY, 5-15 TOTAL L KNEE, R Shoulder - rotator cuff. cage in spine L4-5. COLONOSCOPY, BILATERAL CATARACT SURGERY, BILATERAL HAND SURGERY Past Anesthesia/Blood Transfusion Reactions: Previous Problems w/ Anesthesia Additional Past Anesthesia/Blood Transfusion Reaction / Comment(s): anesthetics - generalized weakness and muscle soreness. Past Psychological History: Anxiety Smoking Status: Former smoker Past Alcohol Use History: None Reported Past Drug Use History: None Reported - Past Family History Mother Family Medical History: Myocardial Infarction ([place]) Additional Family Medical History / Comment(s): Mother of [place] Brother(s) Family Medical History: Cancer Additional Family Medical History / Comment(s): LEUKEMIA Father Family Medical History: Cancer, Myocardial Infarction ([place]) Additional Family Medical History / Comment(s): SKIN CANCER, father of [place] General Exam - General Exam Comments Initial Comments: GENERAL: Patient is well-developed and well-nourished. Patient is nontoxic and well- hydrated and is in mild distress. ENT: Neck is soft and supple. No significant lymphadenopathy is noted. Oropharynx is clear. Moist mucous membranes. Neck has full range of motion without eliciting any pain. EYES: The sclera were anicteric and conjunctiva were pink and moist. Extraocular movements were intact and pupils were equal round and reactive to light. Eyelids were unremarkable. PULMONARY: Patient has diffuse expiratory wheezing CARDIOVASCULAR: There is a regular rate and rhythm without any murmurs gallops or rubs. ABDOMEN: Soft and nontender with normal bowel sounds. SKIN: Skin is clear with no lesions or rashes and otherwise unremarkable. NEUROLOGIC: Patient is alert and oriented x3. Cranial nerves II through XII are grossly intact. Motor and sensory are also intact. Normal speech, volume and content. Symmetrical smile. MUSCULOSKELETAL: Normal extremities with adequate strength and full range of motion. LYMPHATICS: No significant lymphadenopathy is noted PSYCHIATRIC: Normal psychiatric evaluation. Limitations: no limitations Course Vital Signs 03/08/23 17:11 Temperature 98.3 F Pulse Rate 85 Respiratory 22 Rate Blood Pressure 126/99 O2 Sat by Pulse 96 Oximetry Medical Decision Making - Medical Decision Making EKG was interpreted by myself shows a sinus rhythm at 79 bpm GA interval 283 QRSs 81 QT interval 365 QTC is 399. Patient's EKG shows no ST segment elevation or depression. Was pt. sent in by a medical professional or institution (, PA, TIMBER GRADER, urgent care, hospital, or custodial...) When possible be specific @ -No Did you speak to anyone other than the patient for history (EMS, parent, family, police, friend...)? What history was obtained from this source @ -No Did you review nursing and triage notes (agree or disagree)? Why? @ -I reviewed and agree with nursing and triage notes Were old charts reviewed (outside hosp., previous admission, EMS record, old EKG, old radiological studies, urgent care reports/EKG's, custodial records)? Report findings @ -Prior laboratory retractions patient Differential Diagnosis (chest pain, altered mental status, abdominal pain women, abdominal pain men, vaginal bleeding, weakness, fever, dyspnea, syncope, headache, dizziness, GI bleed, back pain, seizure, CVA, palpatations, mental health, musculoskeletal)? @ -Differential Dyspnea: Coronary syndrome, arrhythmia, tamponade, asthma, COPD, pulmonary embolism, pneumonia, pneumothorax, pulmonary effusion, anaphylaxis, diabetic ketoacidosis, flailed chest, pulmonary contusion, diaphragmatic rupture, anemia, neuromuscular, this is not meant to be an all-inclusive list. EKG interpreted by me (3pts min.). @ -As above X-rays interpreted by me (1pt min.). @ -Chest x-ray shows no acute abnormality. CT interpreted by me (1pt min.). @ -None done U/S interpreted by me (1pt. min.). @ -None done What testing was considered but not performed or refused? (CT, X-rays, U/S, labs)? Why? @ -None What meds were considered but not given or refused? Why? @ -None Did you discuss the management of the patient with other professionals (professionals i.e. , PA, TIMBER GRADER, lab, RT, psych nurse, social sciences chair, wheel assembler, t eacher, radio officer, machine adjuster leader case trim)? Give summary @ -No Was smoking cessation discussed for >3mins.? @ -No Was critical care preformed (if so, how long)? @ -No Were there social determinants of health that impacted care today? How? (Homelessness, low income, unemployed, alcoholism, drug addiction, transportation, low edu. Level, literacy, decrease access to med. care, nursing home, rehab)? @ -No Was there de-escalation of care discussed even if they declined (Discuss DNR or withdrawal of care, Hospice)? DNR status @ -No What co-morbidities impacted this encounter? (DM, HTN, Smoking, COPD, CAD, Cancer, CVA, ARF, Chemo, Hep., AIDS, mental health diagnosis, sleep apnea, morbid obesity)? @ -None Was patient admitted / discharged? Hospital course, mention meds given and ro angle, prescriptions, significant lab abnormalities, going to OR and other pertinent info. @ -She is a breathing treatment in the emergency department as well as steroids. Patient was feeling better however she was leery about going home because she was afraid to contaminate her daughter and . Patient finally decided that she would rather go home and stay in the hospital and she was told if she needed to shake come back to the hospital at any point time she was feeling worse. Undiagnosed new problem with uncertain prognosis? @ -No Drug Therapy requiring intensive monitoring for toxicity (Heparin, Nitro, Insuli n, Cardizem)? @ -No Were any procedures done? @ -No Diagnosis/symptom? @ -COVID Acute, or Chronic, or Acute on Chronic? @ -Acute Uncomplicated (without systemic symptoms) or Complicated (systemic symptoms)? @ -Complicated Side effects of treatment? @ -No Exacerbation, Progression, or Severe Exacerbation? @ -No Poses a threat to life or bodily function? How? (Chest pain, [place], [place], pneumonia, PE, COPD, DKA, ARF, appy, cholecystitis, CVA, Diverticulitis, Homicidal, Suicidal, threat to staff... and all critical care pts) @ -No Diagnosis/symptom? @ -Bronchospasms Acute, or Chronic, or Acute on Chronic? @ -Acute Uncomplicated (without systemic symptoms) or Complicated (systemic symptoms)? @ -Complicated Side effects of treatment? @ -none Exacerbation, Progression, or Severe Exacerbation] @ -no Poses a threat to life or bodily function? @ -no - Lab Data Result diagrams: 03/08/23 18:29 03/08/23 18:29 Lab Results 03/08/23 03/08/23 03/08/23 Range/Units 18:29 18:29 18:29 WBC 7.3 (3.8-10.6) k/uL RBC 4.06 (3.80-5.40) m/uL Hgb 11.5 (11.4-16.0) gm/dL Hct 34.7 (34.0-46.0) % MCV 85.6 (80.0-100.0) fL MCH 28.4 (25.0-35.0) pg MCHC 33.2 (31.0-37.0) g/dL RDW 13.3 (11.5-15.5) % Plt Count 262 (150-450) k/uL MPV 6.7 Neutrophils % 66 % Lymphocytes % 23 % Monocytes % 7 % Eosinophils % 2 % Basophils % 1 % Neutrophils # 4.8 (1.3-7.7) k/uL Lymphocytes # 1.7 (1.0-4.8) k/uL Monocytes # 0.5 (0-1.0) k/uL Eosinophils # 0.1 (0-0.7) k/uL Basophils # 0.0 (0-0.2) k/uL PT 9.3 (9.0-12.0) sec INR 0.9 (<1.2) APTT 24.3 (22.0-30.0) sec Sodium 139 (137-145) mmol/L Potassium 4.3 (3.5-5.1) mmol/L Chloride 107 (98-107) mmol/L Carbon Dioxide 23 (22-30) mmol/L Anion Gap 9 mmol/L BUN 18 H (7-17) mg/dL Creatinine 0.75 (0.52-1.04) mg/dL Est GFR (CKD-EPI)AfAm >90 (>60 ml/min/1.73 sqM) Est GFR (CKD-EPI)NonAf 79 (>60 ml/min/1.73 sqM) Glucose 96 (74-99) mg/dL Plasma Lactic Acid Vaughn (0.7-2.0) mmol/L Calcium 8.8 (8.4-10.2) mg/dL Magnesium 1.8 (1.6-2.3) mg/dL Total Bilirubin 0.5 (0.2-1.3) mg/dL AST 23 (14-36) U/L ALT 15 (4-34) U/L Alkaline Phosphatase 111 (38-126) U/L Troponin I (0.000-0.034) ng/mL Total Protein 6.8 (6.3-8.2) g/dL Albumin 3.6 (3.5-5.0) g/dL Coronavirus (PCR) (Not Detectd) 03/08/23 03/08/23 03/08/23 Range/Units 18:29 18:29 18:29 WBC (3.8-10.6) k/uL RBC (3.80-5.40) m/uL Hgb (11.4-16.0) gm/dL Hct (34.0-46.0) % MCV (80.0-100.0) fL MCH (25.0-35.0) pg MCHC (31.0-37.0) g/dL RDW (11.5-15.5) % Plt Count (150-450) k/uL MPV Neutrophils % % Lymphocytes % % Monocytes % % Eosinophils % % Basophils % % Neutrophils # (1.3-7.7) k/uL Lymphocytes # (1.0-4.8) k/uL Monocytes # (0-1.0) k/uL Eosinophils # (0-0.7) k/uL Basophils # (0-0.2) k/uL PT (9.0-12.0) sec INR (<1.2) APTT (22.0-30.0) sec Sodium (137-145) mmol/L Potassium (3.5-5.1) mmol/L Chloride (98-107) mmol/L Carbon Dioxide (22-30) mmol/L Anion Gap mmol/L BUN (7-17) mg/dL Creatinine (0.52-1.04) mg/dL Est GFR (CKD-EPI)AfAm (>60 ml/min/1.73 sqM) Est GFR (CKD-EPI)NonAf (>60 ml/min/1.73 sqM) Glucose (74-99) mg/dL Plasma Lactic Acid Vaughn 1.4 (0.7-2.0) mmol/L Calcium (8.4-10.2) mg/dL Magnesium (1.6-2.3) mg/dL Total Bilirubin (0.2-1.3) mg/dL AST (14-36) U/L ALT (4-34) U/L Alkaline Phosphatase (38-126) U/L Troponin I <0.012 (0.000-0.034) ng/mL Total Protein (6.3-8.2) g/dL Albumin (3.5-5.0) g/dL Coronavirus (PCR) Detected A (Not Detectd) Disposition Clinical Impression: COVID-19, COPD exacerbation Disposition: ADMITTED IP TO THIS [facility] Additional Instructions: Patient should return to the emergency department for any difficulty breathing. Patient should take prednisone as prescribed. Patient should use inhalers every 4 hours and every 2 when necessary Prescriptions: predniSONE [Deltasone] 40 mg PO DAILY #8 tab Is patient prescribed a controlled substance at d/c from ED?: No Referrals: Deejay Zhu MD [Primary Care Provider] - 1-2 days Time of Disposition: 20:42
[2023-03-08 19:02] LABS: Basophils % (A) 1 %; Eosinophils # (A) 0.1 k/uL (0-0.7); Eosinophils % (A) 2 %; HCT 34.7 % (34.0-46.0); HGB 11.5 gm/dL (11.4-16.0); Lymphocytes # (A) 1.7 k/uL (1.0-4.8); Lymphocytes % (A) 23 %; MCH 28.4 pg (25.0-35.0); MCHC 33.2 g/dL (31.0-37.0); MCV 85.6 fL (80.0-100.0); Mean Platelet Volume 6.7; Monocytes # (A) 0.5 k/uL (0-1.0); Monocytes % (A) 7 %; Neutrophils # (A) 4.8 k/uL (1.3-7.7); Neutrophils % (A) 66 %; Platelet Count 262 k/uL (150-450); RBC 4.06 m/uL (3.80-5.40); RDW 13.3 % (11.5-15.5); WBC 7.3 k/uL (3.8-10.6)
--- NOTE | 2023-03-08 19:09 | XR ---
EXAMINATION TYPE: XR chest 2V DATE OF EXAM: 03/08/2023 6:48 PM COMPARISON: Chest radiographs from 08/21/2019 TECHNIQUE: XR chest 2V Frontal and lateral views of the chest. CLINICAL INDICATION:Female, 72 years old with history of difficulty breathing; FINDINGS: Lungs/Pleura: There is no evidence of pleural effusion, focal consolidation, or pneumothorax. Pulmonary vascularity: Unremarkable. Heart/mediastinum: Cardiomediastinal silhouette is unremarkable. Musculoskeletal: No acute osseous pathology. IMPRESSION: No acute cardiopulmonary disease/process.
[2023-03-08 19:12] LABS: ALT 15 U/L (4-34); AST 23 U/L (14-36); African American GFR (CKD) >90 (>60 ml/min/1.73 sqM); Albumin 3.6 g/dL (3.5-5.0); Alkaline Phosphatase 111 U/L (38-126); Anion Gap 9 mmol/L; Blood Urea Nitrogen 18 mg/dL (7-17); Calcium 8.8 mg/dL (8.4-10.2); Carbon Dioxide 23 mmol/L (22-30); Chloride 107 mmol/L (98-107); Glucose 96 mg/dL (74-99); Magnesium 1.8 mg/dL (1.6-2.3); Non-African American GFR(CKD) 79 (>60 ml/min/1.73 sqM); Potassium 4.3 mmol/L (3.5-5.1); Sodium 139 mmol/L (137-145); Total Bilirubin 0.5 mg/dL (0.2-1.3); Total Protein 6.8 g/dL (6.3-8.2)
[2023-03-08 19:53] LABS: INR 0.9 (<1.2); Partial Thromboplastin Time 24.3 sec (22.0-30.0); Prothrombin Time 9.3 sec (9.0-12.0)
[2023-03-08 21:09] VITALS: BP 144/87; PULSE 78
== END 2023-03-08 21:09 | disposition other institution (70) ==
LOC: EC 15:47
DX: U07.1 COVID-19 (principal); J44.1 Chronic obstructive pulmonary disease with (acute) exacerbation; E11.36 Type 2 diabetes mellitus with diabetic cataract; I10 Essential (primary) hypertension; E07.9 Disorder of thyroid, unspecified; K21.9 Gastro-esophageal reflux disease without esophagitis; E78.5 Hyperlipidemia, unspecified; M19.90 Unspecified osteoarthritis, unspecified site; F41.9 Anxiety disorder, unspecified; Z79.84 Long term (current) use of oral hypoglycemic drugs; Z79.890 Hormone replacement therapy; Z79.899 Other long term (current) drug therapy; Z88.2 Allergy status to sulfonamides; Z91.09 Other allergy status, other than to drugs and biological substances; Z88.8 Allergy status to other drugs, medicaments and biological substances; Z86.73 Personal history of transient ischemic attack (TIA), and cerebral infarction without residual deficits; Z87.891 Personal history of nicotine dependence
CPT/HCPCS: 36415; 94640; 93005; 80053; 83605; 83735; 84484; 85025; 85610; 85730; 87040; 87635; 71046; 99285; 96374; J2930

== ENCOUNTER 2023-06-06 19:07 | Emergency (ER) | payer MEDICARE ==
--- NOTE | 2023-06-06 20:12 | ED ---
Fall HPI - General Source: patient, family Mode of arrival: ambulatory <Adrienne Starr - Last Filed: 06/06/23 20:10> <Remi Krause - Last Filed: 06/06/23 22:08> - General Chief Complaint: Fall Stated Complaint: Nwed-[id number] injury Time Seen by Provider: 06/06/23 20:10 - History of Present Illness Initial Comments: Ken tis a 72 year old female who presents to the emergency department for fall. Patient was leaning on a door which moved causing her to fall. Patient hit her head and lost consciousness. She is not on blood thinners. She has pain and hematoma to the back of her head as well as jaw pain. No vomiting. Patient also complains of right shoulder pain. (Adrienne Starr) - Related Data Home Medications Medication Instructions Recorded Confirmed Albuterol Sulfate [Proair Hfa] 2 puff INHALATION RT-QID PRN 12/10/14 03/08/23 Levothyroxine Sodium [Synthroid] 50 mcg PO DAILY 12/10/14 03/08/23 Montelukast [Singulair] 10 mg PO HS 12/10/14 03/08/23 Sertraline [Zoloft] 100 mg PO BID 12/10/14 03/08/23 metFORMIN HCL [Glucophage] 500 mg PO BID 05/02/15 03/08/23 Melatonin [Melatonin Dissolving 10 mg PO HS 03/15/17 03/08/23 Tablet] Pantoprazole Sodium [Protonix] 40 mg PO HS 04/09/18 03/08/23 Albuterol Nebulized [Ventolin 2.5 mg INHALATION RT-TID PRN 12/15/18 03/08/23 Nebulized] Metoprolol Tartrate [Lopressor] 25 mg PO BID 12/15/18 03/08/23 Formoterol Fumarate [Perforomist] 20 mcg INHALATION RT-BID 04/28/22 03/08/23 Losartan [Cozaar] 50 mg PO DAILY 04/28/22 03/08/23 Topiramate 25 mg PO BID 04/28/22 03/08/23 Yuperlri 175 mcg INHALATION RT-DAILY 04/28/22 03/08/23 Budesonide 0.5 mg INHALATION RT-BID 05/25/22 03/08/23 Loperamide [Imodium] 2 - 4 mg PO DIRECTED PRN 05/25/22 03/08/23 Acetaminophen Tab [Tylenol] 650 mg PO Q6H PRN 03/08/23 03/08/23 Atorvastatin Calcium [Lipitor] 80 mg PO HS 03/08/23 03/08/23 Furosemide [Lasix] 20 mg PO DAILY PRN 03/08/23 03/08/23 Nortriptyline [Pamelor] 50 mg PO HS 03/08/23 03/08/23 diphenhydrAMINE [Benadryl] 25 mg PO QID PRN 03/08/23 03/08/23 Previous Rx's Medication Instructions Recorded predniSONE [Deltasone] 40 mg PO DAILY #8 tab 03/08/23 Acetaminophen-Codeine 300-30mg 1 tab PO Q4H PRN #15 tablet 06/06/23 [Tylenol w/codeine #3] Allergies Allergy/AdvReac Type Severity Reaction Status Date / Time adhesive Allergy Rash/Hives Verified 06/06/23 20:09 Sulfa (Sulfonamide Allergy Anaphylaxis Verified 06/06/23 20:09 Antibiotics) lisinopril AdvReac Cough Verified 06/06/23 20:09 simvastatin [From Zocor] AdvReac MUSCLE PAIN Verified 06/06/23 20:09 metal Allergy Rash/Hives Uncoded 06/06/23 20:09 Review of Systems ROS Other: All systems not noted in ROS Statement are negative. <Adrienne Starr - Last Filed: 06/06/23 20:10> ROS Other: All systems not noted in ROS Statement are negative. <Remi Krause - Last Filed: 06/06/23 22:08> ROS Statement: Those systems with pertinent positive or pertinent negative responses have been documented in the HPI. Past Medical History Past Medical History: COPD, CVA/TIA, Diabetes Mellitus, GERD/Reflux, GI Bleed, Hyperlipidemia, Hypertension, Osteoarthritis (OA), Thyroid Disorder Additional Past Medical History / Comment(s): MIGRAINE HEADACHES, PAST HX RAPID HEARTBEAT, diverticulitis, TIA 2019 History of Any Multi-Drug Resistant Organisms: MRSA Date of last positivie culture/infection: 08/27/05 MDRO Source:: RIGHT MIDDLE FINGER Past Surgical History: Cholecystectomy, Heart Catheterization, Hernia Repair, Orthopedic Surgery Additional Past Surgical History / Comment(s): UMBILICAL HERNIA ,INGUINAL HERNIA, EXPLORATORY LAPAROTOMY,THUMB SURGERY, 12-16-15 TOTAL L KNEE, R Shoulder - rotator cuff. cage in spine L4-5. COLONOSCOPY, BILATERAL CATARACT SURGERY, BILATERAL HAND SURGERY Past Anesthesia/Blood Transfusion Reactions: Previous Problems w/ Anesthesia Additional Past Anesthesia/Blood Transfusion Reaction / Comment(s): anesthetics - generalized weakness and muscle soreness. Past Psychological History: Anxiety Smoking Status: Former smoker Past Alcohol Use History: None Reported Past Drug Use History: None Reported - Past Family History Mother Family Medical History: Myocardial Infarction ([place]) Additional Family Medical History / Comment(s): Mother of [place] Brother(s) Family Medical History: Cancer Additional Family Medical History / Comment(s): LEUKEMIA Father Family Medical History: Cancer, Myocardial Infarction ([place]) Additional Family Medical History / Comment(s): SKIN CANCER, father of [place] <Adrienne Starr - Last Filed: 06/06/23 20:10> General Exam Limitations: no limitations <Adrienne Starr - Last Filed: 06/06/23 20:10> - General Exam Comments Initial Comments: Visual Physical Exam Vital signs reviewed General: Well-appearing, nontoxic, no acute distress. Head: Normocephalic, atraumatic Eyes: PERRLA, EOMI ENT: Airway patent Chest: Nonlabored breathing Skin: No visual rash, normal skin tone Neuro: Alert and oriented 3 Musculoskeletal: No gross abnormalities (Adrienne Starr) Course Vital Signs 06/06/23 20:03 Temperature 97.9 F Pulse Rate 74 Respiratory 20 Rate Blood Pressure 130/68 O2 Sat by Pulse 95 Oximetry Medical Decision Making <Adrienne Starr - Last Filed: 06/06/23 20:10> - Medical Decision Making I performed the QuickNote portion of this chart - Adrienne Starr PA-C (Adrienne Starr) Disposition <Adrienne Starr - Last Filed: 06/06/23 20:10> Is patient prescribed a controlled substance at d/c from ED?: No <Remi Krause - Last Filed: 06/06/23 22:08> Clinical Impression: Fall, TMJ (sprain of temporomandibular joint), Sprain of shoulder, right, Scalp hematoma Disposition: HOME SELF-CARE Condition: Good Instructions (If sedation given, give patient instructions): Fall Prevention for Older Adults (ED), Contusion in Adults (ED), Shoulder Sprain (ED) Prescriptions: Acetaminophen-Codeine 300-30mg [Tylenol w/codeine #3] 1 tab PO Q4H PRN #15 tablet PRN Reason: Pain Referrals: Sophy Simmons DO [Primary Care Provider] - 1-2 days Mei Santos MD [REFERRING] - 1-2 days
--- NOTE | 2023-06-06 21:02 | XR ---
EXAMINATION TYPE: XR shoulder complete RT DATE OF EXAM: 06/06/2023 8:37 PM CLINICAL INDICATION:Female, 72 years old with history of fall COMPARISON: 07/16/2011 TECHNIQUE: XR shoulder complete RT; shoulder was examined in AP, internally rotated and scapular Y p rojections. FINDINGS: Severe degeneration changes of the right shoulder with osteophyte formation and suspected bone-on-bon e articulation. Questionable joint body measuring 16 x 7 mm. There is acetabularization of the acromi on. IMPRESSION : 1. Severe right shoulder osteoarthrosis with suspected full-thickness rotator cuff tear. 2. Suspected joint body measuring up to 16 x 7 mm.
--- NOTE | 2023-06-06 21:06 | CT ---
EXAMINATION TYPE: CT brain cspine wo con, CT facial bones wo con CT DLP: 1045.6 mGycm, Automated exposure control for dose reduction was used. DATE OF EXAM: 06/06/2023 8:37 PM COMPARISON: 08/21/2019.. CLINICAL INDICATION:Female, 72 years old with history of fall; jaw pain after fall. hematoma to back of head. TECHNIQUE: Brain: Multiple axial CT images of the brain were obtained without IV contrast. Cspine: Axial CT images from the skull base to the inferior aspect of T2 we obtained without intraven ous contrast. Coronal and sagittal reformatted images were also reviewed. Facial: Additional axial imaging of the facial structures with sagittal coronal reformats. FINDINGS: Brain: Extra-axial spaces: No abnormal extra-axial fluid collections. Ventricular system: Dilatation in proportion to cerebral atrophy. Cerebral parenchyma: Cerebral atrophy. No acute intraparenchymal hemorrhage or mass effect. The sanders -white junction is well differentiated. Scattered hypoattenuating areas are seen within the white mat ter. Cerebellum: Unremarkable. Mass effect: No evidence of midline shift. Intracranial vasculature: Atherosclerotic calcifications of the intracranial vessels. Soft tissues: Normal. Calvarium/osseous structures: No depressed skull fracture. Paranasal sinuses and mastoid air cells: Clear. Visualized orbits: Bilateral aphakia Cervical spine: Fracture: None. Osseous structures: Multilevel degenerative disc disease changes with endplate spurring and disc oste ophyte complex's. Vertebral alignment: Within normal limits. Spinal canal/Neural Foramina: No evidence of significant spinal canal narrowing. No evidence for sign ificant neural foraminal stenosis. Neck soft tissues: Prevertebral soft tissues are within normal limits. Other: The airway is patent. The lung apices are clear. Facial: Posterior scalp edema. With small hematoma There is no evidence of fracture, subluxation, dis location, or significant soft tissue swelling. The orbital contents are unremarkable.The temporal-man dibular joints appear symmetric. The visualized portion of the paranasal sinuses appear clear. Ather osclerosis of the carotid bifurcations. IMPRESSION: 1. No acute intracranial process. 2. Posterior scalp edema/hematoma without evidence of fracture. No facial bone fracture. 3. No evidence of cervical spine fracture. 4. Mild multilevel degenerative disc disease. 5. Nonspecific white matter changes likely secondary to chronic small vessel ischemic disease.
[2023-06-06] MEDS ORDERED: HYDROcodone/APAP 5-325MG 1 EACH TAB PO STA (21:53)
[2023-06-06 23:28] VITALS: BP 132/80; PULSE 70; RESP 18; TEMP 98.2
== END 2023-06-06 23:12 | disposition home or self-care (01) ==
LOC: EC 19:07
DX: S03.41XA Sprain of jaw, right side, initial encounter (principal); S43.401A Unspecified sprain of right shoulder joint, initial encounter; S00.03XA Contusion of scalp, initial encounter; M19.011 Primary osteoarthritis, right shoulder; M75.121 Complete rotator cuff tear or rupture of right shoulder, not specified as traumatic; J44.9 Chronic obstructive pulmonary disease, unspecified; E11.9 Type 2 diabetes mellitus without complications; K21.9 Gastro-esophageal reflux disease without esophagitis; E78.5 Hyperlipidemia, unspecified; I10 Essential (primary) hypertension; F41.9 Anxiety disorder, unspecified; E07.9 Disorder of thyroid, unspecified; M19.90 Unspecified osteoarthritis, unspecified site; Z87.891 Personal history of nicotine dependence; Z86.73 Personal history of transient ischemic attack (TIA), and cerebral infarction without residual deficits; Z79.890 Hormone replacement therapy; Z79.1 Long term (current) use of non-steroidal anti-inflammatories (NSAID); Z79.84 Long term (current) use of oral hypoglycemic drugs; Z79.51 Long term (current) use of inhaled steroids; Z79.899 Other long term (current) drug therapy; Z91.09 Other allergy status, other than to drugs and biological substances; Z88.2 Allergy status to sulfonamides; Z88.8 Allergy status to other drugs, medicaments and biological substances; W18.30XA Fall on same level, unspecified, initial encounter
CPT/HCPCS: 70450; 70486; 72125; 99284

== ENCOUNTER → 2024-04-11 | Outpatient (CLI) | payer MEDICARE ==
--- NOTE | 2024-04-14 10:29 | CT ---
EXAMINATION TYPE: CT brain wo con CT DLP: 1064.3 mGycm, Automated exposure control for dose reduction was used. DATE OF EXAM: 04/11/2024 2:18 PM COMPARISON: 05/27/2023. CLINICAL INDICATION: Female, 73 years old with history of R41.0 R90.32 Z86.73 DISORIENTATION,HX OF TI A, memory loss TECHNIQUE: Brain: Axial CT images of the brain were obtained with coronal and sagittal reformats created and rev iewed. Contrast used: None. Oral contrast used: None. FINDINGS: Brain: Extra-axial spaces: No abnormal extra-axial fluid collections. Ventricular system: Dilatation in proportion to cerebral atrophy. Cerebral parenchyma: Cerebral atrophy. No acute intraparenchymal hemorrhage or mass effect. The sanders -white junction is well differentiated. Scattered hypoattenuating areas are seen within the white mat ter. Cerebellum: Unremarkable. Mass effect: No evidence of midline shift. Intracranial vasculature: Atherosclerotic calcifications of the intracranial vessels. Soft tissues: Normal. Calvarium/osseous structures: No depressed skull fracture. Paranasal sinuses and mastoid air cells: Mild scattered paranasal sinus disease. Visualized orbits: Bilateral aphakia IMPRESSION: 1. No acute intracranial process. 2. Nonspecific white matter changes, likely secondary to chronic small vessel ischemic disease.
== END | disposition home or self-care (01) ==
LOC: RADCTMAIN 13:44
PROVIDERS: ATTEND Family Medicine
DX: R41.0 Disorientation, unspecified (principal); R90.82 White matter disease, unspecified; Z86.73 Personal history of transient ischemic attack (TIA), and cerebral infarction without residual deficits; H27.03 Aphakia, bilateral; I67.2 Cerebral atherosclerosis
CPT/HCPCS: 70450

== ENCOUNTER → 2024-10-29 | Outpatient (CLI) | payer MEDICARE ==
--- NOTE | 2024-10-29 15:57 | CT ---
EXAMINATION TYPE: CT brain wo con CT DLP: 1047.1 mGycm, Automated exposure control for dose reduction was used. DATE OF EXAM: 10/29/2024 3:44 PM COMPARISON: CT brain C-spine 09/19/2024, CT brain 04/11/2024 CLINICAL INDICATION:Female, 74 years old with history of S06.5X9A TRAUM SUBDR HEM W LOC, Follow up on brain bleed from 09/19/24 TECHNIQUE: Brain: Multiple axial CT images of the brain were obtained without IV contrast. . Coronal and sagitta l reformats reviewed. FINDINGS: Brain: Extra-axial spaces: No abnormal extra-axial fluid collections. Resolution of previously demonstrated subdural hematomas. Ventricular system: Within normal limits Cerebral parenchyma: No acute intraparenchymal hemorrhage or mass effect. The sanders-white junction is well differentiated. Scattered hypoattenuating areas are seen within the periventricular and subcort ical white matter. Cerebellum: Unremarkable. Mass effect: No evidence of midline shift. Intracranial vasculature: unremarkable Soft tissues: Normal. Resolution of previously demonstrated occipital scalp hematoma. Calvarium/osseous structures: No depressed skull fracture. Paranasal sinuses and mastoid air cells: Clear Visualized orbits: Bilateral aphakia IMPRESSION: 1. No acute intracranial process. 2. Resolution of previously demonstrated bilateral subdural hematomas and occipital scalp hematoma. 3. Nonspecific white matter changes, likely secondary to chronic small vessel ischemic disease. [facility], , 10/29/2024 3:55 PM
== END | disposition home or self-care (01) ==
LOC: RADCTMAIN 15:28
PROVIDERS: ATTEND Family Medicine
DX: S06.5X9A Traumatic subdural hemorrhage with loss of consciousness of unspecified duration, initial encounter (principal); R90.82 White matter disease, unspecified
CPT/HCPCS: 70450